=== PATIENT | female | born 1990 | race Caucasian/White ===

== ENCOUNTER → 2020-09-07 12:55 | Outpatient (CLI) | payer OTHER, SELFPAY | PROVIDERS: Referring Provider Physician Assistant; Visit Provider Physician Assistant | DX: A49.02 Methicillin resistant Staphylococcus aureus infection, unspecified site (principal); L40.0 Psoriasis vulgaris; Z79.899 Other long term (current) drug therapy | CPT/HCPCS: 87070; 87077; 87186; 87205 ==

== ENCOUNTER → 2022-02-04 | Outpatient (CLI) | payer BC, SELFPAY ==
[2022-02-06 20:09] LABS: QNTFERON TB Mitogen Value > 10.00 IU/mL (.); QNTFERON TB Nil Value 0.27 IU/mL (.); QNTFERON TB2+ Ag Value 0.13 IU/mL (.)
[2022-02-06 22:01] LABS: Hepatitis B Core Ab Total Negative (Negative); QNTIFERON TB Positive Criteria Negative (Negative)
== END | disposition home or self-care (01) ==
LOC: MTLAB 15:03
PROVIDERS: PCP Family Medicine; Referring Provider Physician Assistant Medical; Visit Provider Physician Assistant Medical
DX: L40.0 Psoriasis vulgaris (principal); Z79.899 Other long term (current) drug therapy
CPT/HCPCS: 36415; 86480; 86704

== ENCOUNTER → 2023-11-10 | Outpatient (CLI) | payer OTHER, SELFPAY ==
--- OUTSIDE RECORDS SUMMARY | 2023-11-10 18:44 | XMS RPT_ITS | CCD ---
Author Name Unknown Address [address] [facility] [place] [address] Organization [facility] Care Team Providers Care Periodicals Library Assistant Name Role Phone SONJA CRUZ Unavailable Unavailable SONJA CRUZ Unavailable Unavailable Roddy Cunningham Primary Care Provider Unavailabl e Roddy Cunningham Primary Care Provider [phone] Roddy Cunningham Primary Care Provider RODDY CUNNINGHAM Primary Care Unavailable GEMINI WILHELM Attending Unavailable GEMINI WILHELM Referring Unavailable RODDY CUNNINGHAM Primary Care Unavailable GEMINI WILHELM Attending Unavailable RODDY CUNNINGHAM Primary Care Unavailable GEMINI WILHELM Attending Unavailable RODDY CUNNINGHAM Primary Care Unavailable RODDY CUNNINGHAM Primary Care Unavailable MODESTA WALLS Attending Unavaila ble GEMINI WILHELM Attending Unavailable GEMINI WILHELM Referring Unavailable RODDY CUNNINGHAM Primary Care Unavailable Roddy Cunningham MD Primary Care Provider Roddy Cunningham MD Primary Care Provider [phone] Roddy Cunningham MD Primary Care Provider [phone] Roddy Cunningham MD Primary Care Provider RODDY CUNNINGHAM Attending Unavailable SELF, SELF Referring Unavailable RODDY CUNNINGHAM Primary Care Unavailable SELF, SELF Referring Unavailable RODDY CUNNINGHAM Primary Care Unavailable RODDY CUNNINGHAM Attending Unavailable RODDY CUNNINGHAM Primary Care Unavailable RODDY CUNNINGHAM Referring Unavailable RODDY CUNNINGHAM Attending Unavailable RODDY CUNNINGAHM Primary Care Unavailable SELF, SELF Referring Unavailable RODDY CUNNINGHAM Attending Unavailable Medications Current Medications Medication Drug Class(es) Dates Sig (Normalized) Sig (Original) acetaminophen 500 mg oral tablet (20 sources) Start: 08-08-2009 take 2 tablets by mouth every six hours as needed acetaminophen 500 MG tablet take 1,000 mg by mouth every 6 hours as needed.. 0 08/08/2009 Active Completed/Discontinued Medications Medication Drug Class(es) Dates Sig (Normalized) Sig (Original) cyclobenzaprine hydrochloride 10 mg oral tablet (20 sources) Muscle Relaxant Start: 05-30-2021 End: 07-17-2023 take 1 tablet by mouth twice daily Cyclobenzaprine 10 MG tablet Indications: Congenital scoliosis Take 1 tablet by mouth 2 times daily. 60 tablet 5 01/15/2023 07/17/2023 Discontinued Problems Active Problems Problem Classification Problem Date Documented Da te Episodic/Chronic Anxiety disorders (20 sources) Anxiety; Translations: [Mixed anxiety and depressive disorder] Onset: 10-18-2008 12-09-2016 Chronic Asthma (20 sources) Intrinsic asthma; Translations: [Unspecified asthma, uncomplicated] 12-09-2016 Chronic Cardiac dysrhythmias (1 source) Palpitations; Translations: [Palpitations] Episodic Diabetes mellitus without complication (5 sources) Impaired fasting glycaemia; Translations: [Impaired fasting glucose] Episodic Disorders of lipid metabolism (3 sources) Mixed hyperlipidemia; Translations: [Mixed hyperlipidemia] Chronic Epilepsy; convulsions (20 sources) Generalized convulsive epilepsy; 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] Onset: 01-26-2010 12-09-2016 Chronic Epilepsy; convulsions (3 sources) Seizure; Translations: [Unspecified convulsions] Episodic Esophageal disorders (20 sources) Gastro-esophageal reflux disease without esophagitis; Translations: [Gastroesophageal reflux disease] 12-09-2016 Chronic Fluid and electrolyte disorders (20 sources) Dehydration; Translations: [Dehydration] 12-09-2016 Episodic Heart valve disorders (20 sources) Pulmonic valve stenosis; Translations: [Pulmonary stenosis, non-rheumatic] Onset: 09-30-2016 01-05-2019 Chronic Inflammatory diseases of female pelvic organs (20 sources) Vaginitis; Translations: [Acute vaginitis] 12-09-2016 Episodic Joint disorders and dislocations; trauma-related (20 sources) Derangement of knee; Translations: [Unspecified internal derangement of unspecified knee] 12-09-2016 Chronic Miscellaneous mental health disorders (9 sources) Primary insomnia; Translations: [Primary insomnia] Chronic Mood disorders (20 sources) Depressive disorder; Translations: [Major depressive disorder, single episode, unspecified] 12-09-2016 Chronic Mycoses (20 sources) Candidiasis of mouth; Translations: [Candidiasis of vagina] 12-09-2016 Episodic Other congenital anomalies (20 sources) Congenital postural scoliosis; 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] Onset: 01-26-2010 12-09-2016 Chronic Other female genital disorders (16 sources) Dysfunctional uterine bleeding; Translations: [Dysfunctional uterine bleeding] 12-09-2016 Chronic Other female genital disorders (17 sources) Abnormal uterine bleeding; Translations: [Other specified abnormal uterine and vaginal bleeding] 12-09-2016 Chronic Other gastrointestinal disorders (20 sources) Dysphagia; Translations: [Dysphagia, unspecified] 12-09-2016 Episodic Other inflammatory condition of skin (20 sources) Psoriasis; Translations: [Psoriasis, unspecified] 12-09-2016 Chronic Other inflammatory condition of skin (20 sources) Arthropathic psoriasis, unspecified; Translations: [Psoriatic arthritis] 10-30-2018 Chronic Other nutritional; endocrine; and metabolic disorders (15 sources) Obesity, unspecified; Translations: [Obese class I] Onset: 05-20-2018 05-20-2018 Chronic Other nutritional; endocrine; and metabolic disorders (12 sources) Obese class I; Translations: [Obesity (BMI 30.0-34.9)] Onset: 05-20-2018 05-20-2018 Other skin disorders (20 sources) Acne; Translations: [Acne, unspecified] 12-09-2016 Episodic Other upper respiratory disease (20 sources) Allergic rhinitis; Translations: [Allergic rhinitis, unspecified] 12-09-2016 Chronic Pneumonia (except that caused by tuberculosis or sexually transmitted disease) (20 sources) Bronchopneumonia; Translations: [Bronchopneumonia, unspecified organism] 12-09-2016 Episodic Residual codes; unclassified (20 sources) Persistent insomnia; Translations: [Persistent insomnia] 12-09-2016 Chronic Residual codes; unclassified (8 sources) Persistent insomnia; Translations: [Insomnia, unspecified] 12-09-2016 Episodic Thyroid disorders (12 sources) Goiter; Translations: [Iodine-deficiency related diffuse (endemic) goiter] 12-09-2016 Chronic Past or Other Problems Problem Classification Problem Date Documented Da te Episodic/Chronic Genitourinary symptoms and ill-defined conditions (20 sources) Increased frequency of urination; Translations: [Frequency of micturition] Onset: 01-26-2010 12-09-2016 Episodic Mood disorders (6 sources) Mood disorders Onset: 01-05-2019 Resolved: 01-05-2019 01-05-2019 Other upper respiratory infections (20 sources) Acute maxillary sinusitis; Translations: [Acute maxillary sinusitis, unspecified] Onset: 08-08-2008 12-09-2016 Episodic Pulmonary heart disease (20 sources) Pulmonary artery aneurysm; 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] Onset: 09-30-2016 01-05-2019 Episodic Spondylosis; intervertebral disc disorders; other back problems (20 sources) Chronic low back pain; Translations: [Backache] Onset: 08-08-2009 12-09-2016 Episodic Syncope (20 sources) Syncope; Translations: [Syncope and collapse] Onset: 10-01-2016 01-05-2019 Episodic Thyroid disorders (15 sources) Disorder of thyroid gland; Translations: [Thyromegaly] 12-09-2016 Episodic Results Test Name Value Interpretation Reference Range Facil ity Vital Signs Date Time Vital Sign Value Performing Clinician Facility 07-17-2023 14:51-0400 Body mass index (BMI) [Ratio] 30.51 kg/m2 Roddy Cunningham MD Work Phone: [facility] 07-17-2023 14:51-0400 Body weight 63.96 kg Roddy Cunningham MD Work Phone: [facility] 07-17-2023 14:51-0400 Diastolic blood pressure 76 mm[Hg] Roddy Cunningham MD Work Phone: [facility] 07-17-2023 14:51-0400 Heart rate 106 /min Roddy Cunningham MD Work Phone: [facility] 07-17-2023 14:51-0400 SaO2% (BldA) [Mass fraction] 98 % Roddy Cunningham MD Work Phone: [facility] 07-17-2023 14:51-0400 Systolic blood pressure 122 mm[Hg] Roddy Cunningham MD Work Phone: [facility] 01-15-2023 13:11-0400 Body mass index (BMI) [Ratio] 30.73 kg/m2 Roddy Cunningham MD Work Phone: [facility] 01-15-2023 13:11-0400 Body weight 64.41 kg Roddy Cunningham MD Work Phone: [facility] 01-15-2023 13:11-0400 Diastolic blood pressure 74 mm[Hg] Roddy Cunningham MD Work Phone: [facility] 01-15-2023 13:11-0400 Heart rate 109 /min Roddy Cunningham MD Work Phone: [facility] 01-15-2023 13:11-0400 SaO2% (BldA) [Mass fraction] 96 % Roddy Cunningham MD Work Phone: [facility] 01-15-2023 13:11-0400 Systolic blood pressure 129 mm[Hg] Roddy Cunningham MD Work Phone: [facility] 05-29-2022 08:02-0400 Body height 144.8 cm Nora Midland DANCE PROFESSOR-CNC SERVICE ENGINEER [facility] Phone: [facility] 05-29-2022 08:02-0400 Body mass index (BMI) [Ratio] 30.9 kg/m2 Nora Armen DANCE PROFESSOR-CNC SERVICE ENGINEER [facility] 05-29-2022 08:02-0400 Body weight 64.77 kg Nora Midland DANCE PROFESSOR-CNC SERVICE ENGINEER Work Phone: [facility] 05-29-2022 08:02-0400 Diastolic blood pressure 74 mm[Hg] Nora Armen DANCE PROFESSOR-CNC SERVICE ENGINEER Work Phone: [facility] 05-29-2022 08:02-0400 Heart rate 105 /min Nora Armen DANCE PROFESSOR-CNC SERVICE ENGINEER Work Phone: [facility] 05-29-2022 08:02-0400 Respiratory rate 16 /min Nora Armen DANCE PROFESSOR-CNC SERVICE ENGINEER Work Phone: [facility] 05-29-2022 08:02-0400 SaO2% (BldA) [Mass fraction] 98 % Nora Ayers DANCE PROFESSOR-CNC SERVICE ENGINEER Work Phone: [facility] 05-29-2022 08:02-0400 Systolic blood pressure 118 mm[Hg] Nora Ayers DANCE PROFESSOR-CNC SERVICE ENGINEER Work Phone: [facility] 11-28-2021 13:05-0500 Body mass index (BMI) [Ratio] 29.99 kg/m2 Roddy Cunningham MD Work Phone: [facility] 11-28-2021 13:05-0500 Body weight 62.87 kg Roddy Cunningham MD Work Phone: [facility] 11-28-2021 13:05-0500 Diastolic blood pressure 28 mm[Hg] Roddy Cunningham MD Work Phone: [facility] 11-28-2021 13:05-0500 Heart rate 103 /min Roddy Cunningham MD Work Phone: [facility] 11-28-2021 13:05-0500 SaO2% (BldA) [Mass fraction] 99 % Roddy Cunningham MD Work Phone: [facility] 11-28-2021 13:05-0500 Systolic blood pressure 133 mm[Hg] Roddy Cunningham MD Work Phone: [facility] 08-07-2021 07:59-0500 Body height 144.8 cm Nora Ayers DANCE PROFESSOR-CNC SERVICE ENGINEER Work Phone: [facility] 08-07-2021 07:59-0500 Body mass index (BMI) [Ratio] 29.43 kg/m2 Nora Ayers DANCE PROFESSOR-CNC SERVICE ENGINEER Work Phone: [facility] 08-07-2021 07:59-0500 Body weight 61.69 kg Nora Ayers DANCE PROFESSOR-CNC SERVICE ENGINEER Work Phone: [facility] 08-07-2021 07:59-0500 Diastolic blood pressure 80 mm[Hg] Nora Ayers DANCE PROFESSOR-CNC SERVICE ENGINEER Work Phone: [employer] [facility] 08-07-2021 07:59-0500 Heart rate 102 /min Nora Ayers DANCE PROFESSOR-CNC SERVICE ENGINEER Work Phone: [facility] 08-07-2021 07:59-0500 SaO2% (BldA) [Mass fraction] 98 % Nora Ayers DANCE PROFESSOR-CNC SERVICE ENGINEER Work Phone: [facility] 08-07-2021 07:59-0500 Systolic blood pressure 128 mm[Hg] Nora Ayers DANCE PROFESSOR-CNC SERVICE ENGINEER Work Phone: [facility] 01-24-2021 10:43-0400 Body height 144.8 cm Nora Ayers DANCE PROFESSOR-CNC SERVICE ENGINEER Work Phone: [facility] 01-24-2021 10:43-0400 Body mass index (BMI) [Ratio] 29.86 kg/m2 Nora Ayers DANCE PROFESSOR-CNC SERVICE ENGINEER Work Phone: [facility] 01-24-2021 10:43-0400 Body weight 62.6 kg Nora Ayers DANCE PROFESSOR-CNC SERVICE ENGINEER Work Phone: [facility] 01-24-2021 10:43-0400 Diastolic blood pressure 60 mm[Hg] Nora Ayers DANCE PROFESSOR-CNC SERVICE ENGINEER Work Phone: [facility] 01-24-2021 10:43-0400 Heart rate 97 /min Nora Ayers DANCE PROFESSOR-CNC SERVICE ENGINEER Work Phone: [employer] [facility] 01-24-2021 10:43-0400 SaO2% (BldA) [Mass fraction] 99 % Nora Ayers DANCE PROFESSOR-CNC SERVICE ENGINEER Work Phone: [facility] 01-24-2021 10:43-0400 Systolic blood pressure 124 mm[Hg] Nora Ayers DANCE PROFESSOR-CNC SERVICE ENGINEER Work Phone: [facility] 11-28-2020 08:56-0500 BMI (Body Mass Index) 29.47 kg/m2 [facility] [employer] [facility] 11-28-2020 08:56-0500 Body weight 61.78 kg [facility] 11-28-2020 08:56-0500 BP Diastolic 84 mm[Hg] [facility] 11-28-2020 08:56-0500 BP Systolic 132 mm[Hg] [facility] 11-28-2020 08:56-0500 Pulse (Heart Rate) 78 /min [facility] 11-28-2020 08:56-0500 Respiratory Rate 16 /min [facility] 05-30-2020 14:44-0400 BMI (Body Mass Index) 30.04 kg/m2 [facility] [employer] [facility] 05-30-2020 14:44-0400 Body weight 62.96 kg [facility] 05-30-2020 14:44-0400 BP Diastolic 96 mm[Hg] [facility] 05-30-2020 14:44-0400 BP Systolic 141 mm[Hg] [facility] 05-30-2020 14:44-0400 Pulse (Heart Rate) 114 /min [facility] 05-30-2020 14:44-0400 Pulse Oximetry 98 % [facility] 05-30-2020 14:44-0400 Respiratory Rate 16 /min [facility] 05-15-2020 09:59-0400 BMI (Body Mass Index) 29.86 kg/m2 [facility] 05-15-2020 09:59-0400 Body weight 62.6 kg [facility] 05-15-2020 09:59-0400 BP Diastolic 78 mm[Hg] [facility] 05-15-2020 09:59-0400 BP Systolic 131 mm[Hg] [facility] 05-15-2020 09:59-0400 Height 144.8 cm [facility] 05-15-2020 09:59-0400 Pulse (Heart Rate) 121 /min [facility] 05-15-2020 09:59-0400 Pulse Oximetry 94 % [facility] 04-04-2020 12:59-0400 BMI (Body Mass Index) 29.65 kg/m2 [facility] 04-04-2020 12:59-0400 Body weight 62.14 kg [facility] 04-04-2020 12:59-0400 BP Diastolic 90 mm[Hg] [facility] 04-04-2020 12:59-0400 BP Systolic 140 mm[Hg] [facility] 04-04-2020 12:59-0400 Height 144.8 cm [facility] 04-04-2020 12:59-0400 Pulse (Heart Rate) 116 /min [facility] 04-04-2020 12:59-0400 Respiratory Rate 20 /min [facility] 11-26-2019 14:38-0500 BMI (Body Mass Index) 28.78 kg/m2 [facility] 11-26-2019 14:38-0500 Body weight 60.33 kg [facility] 11-26-2019 14:38-0500 BP Diastolic 95 mm[Hg] [facility] 11-26-2019 14:38-0500 BP Systolic 172 mm[Hg] [facility] 11-26-2019 14:38-0500 Height 144.8 cm [facility] 11-26-2019 14:38-0500 Pulse (Heart Rate) 104 /min [facility] 11-26-2019 14:38-0500 Respiratory Rate 18 /min [facility] 05-27-2019 08:57-0400 BMI (Body Mass Index) 29.65 kg/m2 [facility] 05-27-2019 08:57-0400 Body weight 62.14 kg [facility] 05-27-2019 08:57-0400 BP Diastolic 77 mm[Hg] [facility] 05-27-2019 08:57-0400 BP Systolic 123 mm[Hg] [facility] 05-27-2019 08:57-0400 Pulse (Heart Rate) 107 /min [facility] 03-30-2019 10:02-0400 BMI (Body Mass Index) 29.86 kg/m2 [facility] 03-30-2019 10:02-0400 Body weight 62.6 kg [facility] 03-30-2019 10:02-0400 BP Diastolic 78 mm[Hg] [facility] 03-30-2019 10:02-0400 BP Systolic 138 mm[Hg] [facility] 03-30-2019 10:02-0400 Height 144.8 cm [facility] 03-30-2019 10:02-0400 Pulse (Heart Rate) 108 /min [facility] 03-30-2019 10:02-0400 Respiratory Rate 16 /min [facility] 10-30-2018 10:06-0500 BMI (Body Mass Index) 31.25 kg/m2 [facility] Work Phone: 10-30-2018 10:06-0500 Body Temperature 98.1 [degF] [facility] Work Phone: 10-30-2018 10:06-0500 BP Diastolic 84 mm[Hg] [facility] Work Phone: 10-30-2018 10:06-0500 BP Systolic 126 mm[Hg] [facility] Work Phone: 10-30-2018 10:06-0500 Pulse (Heart Rate) 78 /min [facility] Work Phone: 10-30-2018 10:06-0500 Pulse Oximetry 98 % [facility] Work Phone: 10-30-2018 10:06-0500 Respiratory Rate 16 /min [facility] Work Phone: 10-30-2018 10:06-0500 Weight 65.5 kg [facility] Work Phone: Encounters Encounter Date Encounter Type Care Provider Facility Start: 01-16-2024 ambulatory RODDY CUNNINGHAM [facility] Start: 07-17-2023 ambulatory SELF SELF [facility] Start: 07-17-2023 End: 07-17-2023 Office outpatient visit 25 minutes Roddy Cunningham MD Work Phone: [facility] Procedures Date Procedure Procedure Detail Performing Clinician Start: 06-13-2020 Echocardiography [facility] Work Phone: Start: 05-15-2020 12 lead ECG [facility] Work Phone: Start: 02-05-2019 LABS (OUTSIDE) Roddy villanueva Work Phone: Start: 11-02-2014 Microscopic observat ion [Identifier] in Cervix by Cyto stain [facility] Plan of Treatment Date Care Activity Detail Author Start: 01-16-2024 End: 01-16-2024 Patient encounter procedure 01/16/2024 2:45 PM EDT Office Visit [facility] [address] [place] [phone] Roddy Cunningham MD [address] [place] [phone] [facility] Start: 07-17-2023 End: 07-17-2023 Patient encounter procedure 07/17/2023 Office Visit [facility] Roddy Cunningham MD [address] [place] [phone] [facility] Start: 07-17-2023 End: 01-16-2024 Basic metabolic 2000 panel - Serum or Plasma BASIC METABOLIC PANEL Lab Routine Impaired fasting glucose Expected: 07/17/2023 (Approximate), Expires: 01/16/2024 [facility] Payers Date Payer Category Payer Private Health Insurance [employer] Tony AILEEN [id number] 2023-Present [address] [place] [id number] 2023 Private Health Insurance [id number] 2023 Private Health Insurance [id number] 2021 Unknown [employer] [id number] 2021-Present [address] [place] [address] [id number] 2021 Unknown [id number] 2021 Unknown [id number] 2019 Unknown [id number] 2016 Private Health Insurance [facility] xxxxxxxxx 2016-Present xxxxxxxxx [id number] 2016 Private Health Insurance [id number] 1988 Unknown [id number] [id number] 1988 Unknown [id number] [id number] 1988 Unknown [id number] 2.90 1988 Unknown [id number] [id number] 1988 Unknown [id number] [id number] 1988 Unknown [id number] [id number] 1988 Unknown [id number] 2.983 1988 Unknown [id number] 2.983 1988 Unknown [id number] 2.983 1988 Unknown [id number] [id number] Social History Date Type Detail Facility Start: 10-30-2018 End: 01-15-2023 Tobacco smoking status NHIS Never smoker [facility] Work Phone: Start: 1990 Sex Assigned At Not on file [facility] Work Phone: Start: 03-30-2019 End: 07-17-2023 Alcohol intake No [facility] Start: 11-29-2019 End: 07-18-2023 Alcohol intake Current non-drinker of alcohol (finding) [facility] Start: 04-04-2020 End: 01-15-2023 Tobacco use and exposure Never used [facility] Exposure to SARS-CoV -2 (event) Not sure [facility] Start: 07-17-2023 History of Social function [facility] Gender identity Identifies as fe male gender (finding) [facility] Start: 05-14-2021 Sexual orientation Heterosexual (finding) [facility] Clinical Notes 01-24-2021 to 07-17-2023 Leilani Mera - 07/17/2023 2:50 PM Senia Cunningham MD - 07/17/2023 2:50 PM Keagan Mera - 01/15/2023 1:20 PM Senia Cunningham MD - 01/15/2023 1:20 PM Kathe To - 06/26/2022 8:40 AM EDT Note Date & Type Note Facility 07-17-2023 History of Presen t illness Narrative INSOMNIA- (trouble sleeping) Onset- chronic Frequency- nightly Describe sleep problem (trouble falling asleep, early awakening, etc) - all Treatment tried and response - amitriptyline and tizanidine ANXIETY/DEPRESSION- Patient her for anxiety/depression. Pt is currently being treated with lexapro. Good control with medication .Substance abuse - NONE. GERD- Mayuri presents to the office today for follow-up of GERD. Pt denies dysphagia. Pt has tried nexium with good effectiveness. Control - Other comments- Denies increase pain or cramping, long periods. ALLERGY- Mayuri Smith presents for evaluation/follow up for allergies. Eyes red/itchy/tearing: yes Nasal congestion: yes Runny nose: yes Ear pain: no Sinus pain: no she denies fever, chills, sore throat, cough, sputum, SOB, pleuritic pain, nausea, vomiting, rash. Previous treatment tried: listed meds ASTHMA- Mayuri Smith is a 33 y.o. female who comes in for a/an f/u asthma eval Associated sx include Nasal Congestion: no Fever: no Cough: no Wheezing: no Shortness of breath: no Other: no Also Sz d/o. No breakthrough. Also IFG. Watching diet. INSOMNIA- (trouble sleeping) Onset- chronic Frequency- nightly Describe sleep problem (trouble falling asleep, early awakening, etc) - all Treatment tried and response - amitriptyline and tizanidine ANXIETY/DEPRESSION- Patient her for anxiety/depression. Pt is currently being treated with lexapro. Good control with medication .Substance abuse - NONE. GERD- Mayuri presents to the office today for follow-up of GERD. Pt denies dysphagia. Pt has tried nexium with good effectiveness. Control - Other comments- Denies increase pain or cramping, long periods. ALLERGY- Mayuri Smith presents for evaluation/follow up for allergies. Eyes red/itchy/tearing: yes Nasal congestion: yes Runny nose: yes Ear pain: no Sinus pain: no she denies fever, chills, sore throat, cough, sputum, SOB, pleuritic pain, nausea, vomiting, rash. Previous treatment tried: listed meds ASTHMA- Mayuri Smith is a 33 y.o. female who comes in for a/an f/u asthma eval Associated sx include Nasal Congestion: no Fever: no Cough: no Wheezing: no Shortness of breath: no Other: no Also Sz d/o. No breakthrough. Also IFG. Watching diet. Does not need control. Trying to get . Subjective: Mayuri Smith is a 33 y.o. female who presents in follow up for hyperlipidemia. she is feeling well. There are no complaints relative to her lipids. she denies chest pain, SOB, SHELBY, palpitations, orthopnea, PND, edema, headache, focal neurologic complaints, claudication. General: No fever, chills, weight loss. HEENT: No sinus pain, ear pain, sore throat. Neck: No LAD. Lungs: No cough, sputum, pleuritic pain, hemoptysis, SOB. CV: No chest pain, palpitation, orthopnea, PND, edema. GI: No abd pain, nausea, vomiting, diarrhea, constipation, melena, hematochezia. : No dysuria, frequency, hematuria. Skin: No rash or lesion. Neuro: No mental status changes, headache, focal neurologic complaints. Objective: Blood pressure 122/76, pulse 106, weight 64 kg (141 lb), SpO2 98 %, not currently . Results for orders placed or performed in visit on 01/14/23 LAMOTRIGINE LEVEL Result Value Ref Range LAMOTRIGINE LEVEL 3.7 LIPID PANEL W CALCULATED LDL Result Value Ref Range CHOLESTEROL 240 (H) 100 - 199 MG/DL TRIGLYCERIDE 132 <150 MG/DL HDL CHOLESTEROL 66 (H) 40 - 60 MG/DL LDL CHOLESTEROL, CALCULATED 148 (H) 0 - 100 MG/DL VLDL Cholesterol, Calculated 26 (H) 5.0 - 25.0 MG/DL TCHOL/HDL RATIO, MANUAL ENTER 3.64 RATIO HEPATIC FUNCTION PANEL Result Value Ref Range Albumin 4.0 3.5 - 5.0 G/DL BILIRUBIN, TOTAL 0.2 0.2 - 1.2 MG/DL ALKALINE PHOSPHATASE 66 38 - 126 IU/L AST 17 15 - 41 IU/L BILIRUBIN, DIRECT 0.1 0.0 - 0.2 MG/DL PROTEIN, TOTAL 8.1 6.3 - 8.2 GM/DL ALT 16 14 - 54 IU/L BASIC METABOLIC PANEL Result Value Ref Range Glucose 109 (H) 70 - 100 MG/DL BUN 12 7 - 20 MG/DL CREATININE SERUM 0.89 0.52 - 1.04 MG/DL SODIUM 135 (L) 136 - 145 MMOL/L POTASSIUM 3.4 (L) 3.5 - 5.1 MMOL/L CHLORIDE 98 98 - 107 MMOL/L CARBON DIOXIDE (CO2) 25 22 - 30 MMOL/L ANION GAP 12 8 - 16 MMOL/L CALCIUM 9.0 8.4 - 10.2 MG/DL ESTIMATED GFR, NON AMER 77 ml/min/1.73sq.m ESTIMATED GFR, 93 ml/min/1.73sq.m GFR COMMENT Average GFR for 30-39 years old = 107. HEENT: NC/AT, PERRLA, EOMI, fundi benign, external ears normal, OP normal. Neck: No LAD/thyromegaly. No JVD/bruit. Lungs: Clear to auscultation bilaterally. No wheezes, rales, ronchi. Heart: RRR. No S3/S4. Abdomen: Soft, NT/ND, normal bowel sounds, no HSM, no bruits. Extremities: No clubbing, cyanosis, edema. Normal pulses. Neurologic: CN II-XII intact. Strength/DTR's/sensation symmetric. Cerebellar function normal. Skin: No rash or suspicious lesions. Musculoskeletal: No edema, redness, warmth, deformities. Psychiatric: Alert and oriented. Affect and mood normal. Assessment and Plan: 1. Intrinsic asthma - Montelukast 10 MG tablet; Take 1 tablet by mouth daily. Dispense: 90 tablet; Refill: 1 2. Allergic rhinitis, unspecified seasonality, unspecified trigger - Montelukast 10 MG tablet; Take 1 tablet by mouth daily. Dispense: 90 tablet; Refill: 1 3. Anxious depression - venlafaxine 150 MG Cap SR 24HR capsule XR; Take 1 capsule by mouth daily. Dispense: 90 capsule; Refill: 1 4. Congenital scoliosis 5. Dysfunctional uterine bleeding 6. Gastroesophageal reflux disease without esophagitis - omeprazole [address] capsule; Take 1 capsule by mouth daily. Dispense: 90 capsule; Refill: 1 7. Primary insomnia - Amitriptyline 150 MG tablet; Take 1 tablet by mouth at bedtime. Dispense: 90 tablet; Refill: 1 - Tizanidine 4 MG tablet; Take 1 tablet by mouth 2 times daily. Dispense: 180 tablet; Refill: 1 8. Impaired fasting glucose Discussed lowering carbohydrate intake, mixing glycemic indices, and increasing activity. 9. Mixed hyperlipidemia Diet: - Decrease saturated fats (red meat and solid shortening) - Increase unsaturated fat (olive/canola oil, fish, nuts) - Decreased starch and sugar - Increase fiber - Increase garlic - Can take additional Niacin (500-1000 mg, cautioned about flushing) Has a lab order in the system. Roddy Cunningham MD 07/18/2023 documented in this encounter [facility] 01-15-2023 History of Presen t illness Narrative INSOMNIA- (trouble sleeping) Onset- chronic Frequency- nightly Describe sleep problem (trouble falling asleep, early awakening, etc) - all Treatment tried and response - amitriptyline and tizanidine ANXIETY/DEPRESSION- Patient her for anxiety/depression. Pt is currently being treated with lexapro. Good control with medication .Substance abuse - NONE. GERD- Mayuri presents to the office today for follow-up of GERD. Pt denies dysphagia. Pt has tried nexium with good effectiveness. Control - Other comments- Denies increase pain or cramping, long periods. ALLERGY- Mayuri Smith presents for evaluation/follow up for allergies. Eyes red/itchy/tearing: yes Nasal congestion: yes Runny nose: yes Ear pain: no Sinus pain: no she denies fever, chills, sore throat, cough, sputum, SOB, pleuritic pain, nausea, vomiting, rash. Previous treatment tried: listed meds ASTHMA- Mayuri Smith is a 32 y.o. female who comes in for a/an f/u asthma eval Associated sx include Nasal Congestion: no Fever: no Cough: no Wheezing: no Shortness of breath: no Other: no Also Sz d/o. No breakthrough. Also IFG. Watching diet. INSOMNIA- (trouble sleeping) Onset- chronic Frequency- nightly Describe sleep problem (trouble falling asleep, early awakening, etc) - all Treatment tried and response - amitriptyline and tizanidine ANXIETY/DEPRESSION- Patient her for anxiety/depression. Pt is currently being treated with lexapro. Good control with medication .Substance abuse - NONE. GERD- Mayuri presents to the office today for follow-up of GERD. Pt denies dysphagia. Pt has tried nexium with good effectiveness. Control - Other comments- Denies increase pain or cramping, long periods. Periods controlled. ALLERGY- Mayuri Smith presents for evaluation/follow up for allergies. Eyes red/itchy/tearing: yes Nasal congestion: yes Runny nose: yes Ear pain: no Sinus pain: no she denies fever, chills, sore throat, cough, sputum, SOB, pleuritic pain, nausea, vomiting, rash. Previous treatment tried: listed meds ASTHMA- Myauri Smith is a 32 y.o. female who comes in for a/an f/u asthma eval Associated sx include Nasal Congestion: no Fever: no Cough: no Wheezing: no Shortness of breath: no Other: no Subjective: Mayuri Smith is a 32 y.o. female who presents in follow up for hyperlipidemia. she is feeling well. There are no complaints relative to her lipids. Patient is compliant with medications. she denies any side effects from medications. she denies chest pain, SOB, SHELBY, palpitations, orthopnea, PND, edema, headache, focal neurologic complaints, claudication. Also Sz d/o. No breakthrough. Also IFG. Watching diet. General: No fever, chills, weight loss. HEENT: No sinus pain, ear pain, sore throat. Neck: No LAD. Lungs: No cough, sputum, pleuritic pain, hemoptysis, SOB. CV: No chest pain, palpitation, orthopnea, PND, edema. GI: No abd pain, nausea, vomiting, diarrhea, constipation, melena, hematochezia. : No dysuria, frequency, hematuria. Skin: No rash or lesion. Neuro: No mental status changes, headache, focal neurologic complaints. Objective: Blood pressure 129/74, pulse 109, weight 64.4 kg (142 lb), SpO2 96 %, not currently . Results for orders placed or performed in visit on 01/14/23 LIPID PANEL W CALCULATED LDL Result Value Ref Range CHOLESTEROL 240 (H) 100 - 199 MG/DL TRIGLYCERIDE 132 <150 MG/DL HDL CHOLESTEROL 66 (H) 40 - 60 MG/DL LDL CHOLESTEROL, CALCULATED 148 (H) 0 - 100 MG/DL VLDL Cholesterol, Calculated 26 (H) 5.0 - 25.0 MG/DL TCHOL/HDL RATIO, MANUAL ENTER 3.64 RATIO HEPATIC FUNCTION PANEL Result Value Ref Range Albumin 4.0 3.5 - 5.0 G/DL BILIRUBIN, TOTAL 0.2 0.2 - 1.2 MG/DL ALKALINE PHOSPHATASE 66 38 - 126 IU/L AST 17 15 - 41 IU/L BILIRUBIN, DIRECT 0.1 0.0 - 0.2 MG/DL PROTEIN, TOTAL 8.1 6.3 - 8.2 GM/DL ALT 16 14 - 54 IU/L BASIC METABOLIC PANEL Result Value Ref Range Glucose 109 (H) 70 - 100 MG/DL BUN 12 7 - 20 MG/DL CREATININE SERUM 0.89 0.52 - 1.04 MG/DL SODIUM 135 (L) 136 - 145 MMOL/L POTASSIUM 3.4 (L) 3.5 - 5.1 MMOL/L CHLORIDE 98 98 - 107 MMOL/L CARBON DIOXIDE (CO2) 25 22 - 30 MMOL/L ANION GAP 12 8 - 16 MMOL/L CALCIUM 9.0 8.4 - 10.2 MG/DL ESTIMATED GFR, NON AMER 77 ml/min/1.73sq.m ESTIMATED GFR, 93 ml/min/1.73sq.m GFR COMMENT Average GFR for 30-39 years old = 107. HEENT: NC/AT, PERRLA, EOMI, fundi benign, external ears normal, OP normal. Neck: No LAD/thyromegaly. No JVD/bruit. Lungs: Clear to auscultation bilaterally. No wheezes, rales, ronchi. Heart: RRR. No S3/S4. Abdomen: Soft, NT/ND, normal bowel sounds, no HSM, no bruits. Extremities: No clubbing, cyanosis, edema. Normal pulses. Neurologic: CN II-XII intact. Strength/DTR's/sensation symmetric. Cerebellar function normal. Skin: No rash or suspicious lesions. Musculoskeletal: No edema, redness, warmth, deformities. Psychiatric: Alert and oriented. Affect and mood normal. Assessment and Plan: 1. Intrinsic asthma - Montelukast 10 MG tablet; Take 1 tablet by mouth daily. Dispense: 30 tablet; Refill: 5 - budesonide-formoterol (Symbicort) 160-4.5 mcg/puff Aerosol inhaler; Inhale 2 puffs 2 times daily. Dispense: 10.2 g; Refill: 5 2. Allergic rhinitis, unspecified seasonality, unspecified trigger - Montelukast 10 MG tablet; Take 1 tablet by mouth daily. Dispense: 30 tablet; Refill: 5 3. Anxious depression - venlafaxine 150 MG Cap SR 24HR capsule XR; Take 1 capsule by mouth daily. Dispense: 30 capsule; Refill: 5 4. Congenital scoliosis - Cyclobenzaprine 10 MG tablet; Take 1 tablet by mouth 2 times daily. Dispense: 60 tablet; Refill: 5 5. Dysfunctional uterine bleeding - norgestimate-ethinyl estradiol 0.25-35 MG-MCG tablet; Take 1 tablet by mouth daily. Dispense: 28 tablet; Refill: 6 6. Gastroesophageal reflux disease without esophagitis - omeprazole [address] capsule; Take 1 capsule by mouth daily. Dispense: 30 capsule; Refill: 5 7. Primary insomnia - Amitriptyline 150 MG tablet; Take 1 tablet by mouth at bedtime. Dispense: 30 tablet; Refill: 5 - Tizanidine 2 MG tablet; Take 2 tablets by mouth 2 times daily. Dispense: 120 tablet; Refill: 5 8. Impaired fasting glucose Discussed lowering carbohydrate intake, mixing glycemic indices, and increasing activity. - BASIC METABOLIC PANEL; Future - HEMOGLOBIN A1C; Future 9. Mixed hyperlipidemia Diet: - Decrease saturated fats (red meat and solid shortening) - Increase unsaturated fat (olive/canola oil, fish, nuts) - Decreased starch and sugar - Increase fiber - Increase garlic - Can take additional Niacin (500-1000 mg, cautioned about flushing) - HEPATIC FUNCTION PANEL; Future - LIPID PANEL W CALCULATED LDL; Future 10. Intractable epilepsy without status epilepticus, unspecified epilepsy type - LAMOTRIGINE LEVEL; Future 11. Seizure Roddy Cunningham MD 01/15/2023 documented in this encounter [facility] 06-26-2022 History of Presen t illness Narrative INSOMNIA- (trouble sleeping) Onset- chronic Frequency- nightly Describe sleep problem (trouble falling asleep, early awakening, etc) - all Treatment tried and response - amitriptyline and tizanidine Additional Comments- Pt needs refills on meds. ANXIETY/DEPRESSION- Patient her for anxiety/depression. Pt is currently being treated with lexapro. Good control with medication .Substance abuse - NONE. GERDRobert Messina presents to the office today for follow-up of GERD. Pt denies dysphagia. Pt has tried nexium with good effectiveness. Control - Other comments- Denies increase pain or cramping, long periods. ALLERGY- Mayuri Smith presents for evaluation/follow up for allergies. Eyes red/itchy/tearing: yes Nasal congestion: yes Runny nose: yes Ear pain: no Sinus pain: no she denies fever, chills, sore throat, cough, sputum, SOB, pleuritic pain, nausea, vomiting, rash. Previous treatment tried: listed meds ASTHMA- Mayuri Smith is a 32 y.o. female who comes in for a/an f/u asthma eval Associated sx include Nasal Congestion: no Fever: no Cough: no Wheezing: no Shortness of breath: no Other: no Current medications effectiveness- rx meds Also Sz d/o. No breakthrough. Also IFG. Watching diet. INSOMNIA- (trouble sleeping) Onset- chronic Frequency- nightly Describe sleep problem (trouble falling asleep, early awakening, etc) - all Treatment tried and response - amitriptyline and tizanidine Additional Comments- Pt needs refills on meds. ANXIETY/DEPRESSION- Patient her for anxiety/depression. Pt is currently being treated with lexapro. Good control with medication .Substance abuse - NONE. GERDRobert Messina presents to the office today for follow-up of GERD. Pt denies dysphagia. Pt has tried nexium with good effectiveness. Control - Other comments- Denies increase pain or cramping, long periods. ALLERGY- Mayuri Smith presents for evaluation/follow up for allergies. Eyes red/itchy/tearing: yes Nasal congestion: yes Runny nose: yes Ear pain: no Sinus pain: no she denies fever, chills, sore throat, cough, sputum, SOB, pleuritic pain, nausea, vomiting, rash. Previous treatment tried: listed meds ASTHMA- Mayuri Smith is a 32 y.o. female who comes in for a/an f/u asthma eval Associated sx include Nasal Congestion: no Fever: no Cough: no Wheezing: no Shortness of breath: no Other: no Current medications effectiveness- rx meds Also Sz d/o. No breakthrough. Also IFG. Watching diet. Subjective: Mayuri Smith is a 32 y.o. female who presents in follow up for hyperlipidemia. she is feeling well. There are no complaints relative to her lipids. she denies chest pain, SOB, SHELBY, palpitations, orthopnea, PND, edema, headache, focal neurologic complaints, claudication. General: No fever, chills, weight loss. HEENT: No sinus pain, ear pain, sore throat. Neck: No LAD. Lungs: No cough, sputum, pleuritic pain, hemoptysis, SOB. CV: No chest pain, palpitation, orthopnea, PND, edema. GI: No abd pain, nausea, vomiting, diarrhea, constipation, melena, hematochezia. : No dysuria, frequency, hematuria. Skin: No rash or lesion. Neuro: No mental status changes, headache, focal neurologic complaints. Objective: not currently . Results for orders placed or performed in visit on 11/27/21 LAMOTRIGINE LEVEL Result Value Ref Range LAMOTRIGINE LEVEL 6.8 LIPID PANEL W CALCULATED LDL Result Value Ref Range CHOLESTEROL 282 (H) 100 - 199 MG/DL TRIGLYCERIDE 114 <150 MG/DL HDL CHOLESTEROL 74 (H) 40 - 60 MG/DL LDL CHOLESTEROL, CALCULATED 185 (H) 0 - 100 MG/DL VLDL Cholesterol, Calculated 23 5.0 - 25.0 MG/DL TCHOL/HDL RATIO, MANUAL ENTER 3.81 RATIO HEPATIC FUNCTION PANEL Result Value Ref Range Albumin 4.2 3.5 - 5.0 G/DL BILIRUBIN, TOTAL 0.5 0.2 - 1.2 MG/DL ALKALINE PHOSPHATASE 90 38 - 126 IU/L AST 18 15 - 41 IU/L BILIRUBIN, DIRECT 0.0 0.0 - 0.2 MG/DL PROTEIN, TOTAL 8.5 (H) 6.3 - 8.2 GM/DL ALT 15 14 - 54 IU/L BASIC METABOLIC PANEL Result Value Ref Range GLUCOSE 75 70 - 100 MG/DL BUN 11 7 - 20 MG/DL CREATININE SERUM 0.75 0.52 - 1.04 MG/DL SODIUM 138 136 - 145 MMOL/L POTASSIUM 3.5 3.5 - 5.1 MMOL/L CHLORIDE 100 98 - 107 MMOL/L CARBON DIOXIDE (CO2) 23 22 - 30 MMOL/L ANION GAP 15 8 - 16 MMOL/L CALCIUM 9.6 8.4 - 10.2 MG/DL ESTIMATED GFR, NON AMER 95 ml/min/1.73sq.m ESTIMATED GFR, 114 ml/min/1.73sq.m GFR COMMENT Average GFR for 30-39 years old = 107. HEENT: NC/AT, PERRLA, EOMI, fundi benign, external ears normal, OP normal. Neck: No LAD/thyromegaly. No JVD/bruit. Lungs: Clear to auscultation bilaterally. No wheezes, rales, ronchi. Heart: RRR. No S3/S4. Abdomen: Soft, NT/ND, normal bowel sounds, no HSM, no bruits. Extremities: No clubbing, cyanosis, edema. Normal pulses. Neurologic: CN II-XII intact. Strength/DTR's/sensation symmetric. Cerebellar function normal. Skin: No rash or suspicious lesions. Musculoskeletal: No edema, redness, warmth, deformities. Psychiatric: Alert and oriented. Affect and mood normal. Assessment and Plan: 1. Intrinsic asthma - montelukast 10 MG tablet; Take 1 tablet by mouth daily. Dispense: 30 tablet; Refill: 5 - budesonide-formoterol (Symbicort) 160-4.5 mcg/puff Aerosol inhaler; Inhale 2 puffs 2 times daily. Dispense: 10.2 g; Refill: 5 2. Allergic rhinitis, unspecified seasonality, unspecified trigger - montelukast 10 MG tablet; Take 1 tablet by mouth daily. Dispense: 30 tablet; Refill: 5 3. Anxious depression - venlafaxine 150 MG Cap SR 24HR capsule XR; Take 1 capsule by mouth daily. Dispense: 30 capsule; Refill: 5 4. Congenital scoliosis - cyclobenzaprine 10 MG tablet; Take 1 tablet by mouth 2 times daily. Dispense: 60 tablet; Refill: 5 5. Gastroesophageal reflux disease without esophagitis - omeprazole [address] capsule; Take 1 capsule by mouth daily. Dispense: 30 capsule; Refill: 5 6. Primary insomnia - amitriptyline 150 MG tablet; Take 1 tablet by mouth at bedtime. Dispense: 30 tablet; Refill: 5 - tizanidine 2 MG tablet; Take 2 tablets by mouth 2 times daily. Dispense: 120 tablet; Refill: 5 7. Dysfunctional uterine bleeding - norgestimate-ethinyl estradiol 0.25-35 MG-MCG tablet; Take 1 tablet by mouth daily. Dispense: 28 tablet; Refill: 6 8. Seizure - LAMOTRIGINE LEVEL; Future 9. Mixed hyperlipidemia Diet: - Decrease saturated fats (red meat and solid shortening) - Increase unsaturated fat (olive/canola oil, fish, nuts) - Decreased starch and sugar - Increase fiber - Increase garlic - Can take additional Niacin (500-1000 mg, cautioned about flushing) - BASIC METABOLIC PANEL; Future - HEPATIC FUNCTION PANEL; Future - LIPID PANEL W CALCULATED LDL; Future Roddy Cunningham MD 06/26/2022 documented in this encounter [facility] 05-29-2022 History of Presen t illness Narrative NEUROLOGY OUTPATIENT FOLLOW-UP 05/29/2022 Patient: Mayuri Smith Date of : 1990 Primary Care Provider: Roddy Cunningham Neurology Provider for this visit: Nora Ayers APRN-CNC SERVICE ENGINEER - - - - - - - - - - - - - - - - - - - - - - - - - - - - - - - - - - - - - - ASSESSMENT & PLAN for this 32 y.o. female: Epilepsy NOS- Lamictal 100mg in am and 200mg in evening Continue with folic acid supplementation Seizure precautions- education placed in AVS Patient to follow up in 1 year. Educated to contact the office with questions, concerns, or worsening symptoms. This provider spent ample amount of time reviewing patient's chart. This includes: provider notes, therapy, labs, imaging, procedures, medications, etc.. 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 Follow-up: Return in about 1 year (around 05/29/2023), or if symptoms worsen or fail to improve. - - - - - - - - - - - - - - - - - - - - - - - - - - - - - - - - - - - - - - DATA/Testing: (MRI/CT/XR, EEG, EMG, CSF, Cardiac, Abnl Labs, Nl labs) No neuroimaging to review at this time SUBJECTIVE: Chief Complaint: Follow-up for seizures Interval History: Informant(s): .the patient Patient presents in follow up for epilepsy. She states that she has been doing well since her last appointment. She denies any seizure-like activity. She is tolerating the medication well and denies any side effects. Patient also continues to take her folic acid supplements daily. Patient is independent in all activities. She manages her own medications and finances. Patient is sleeping through the night and feels rested upon waking. Patient consumes 2-3 meals a day. Her mood is stable. 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 Patient is unsure of what occurs during seizures. She states that she loses consciousness and is amnestic afterwards. Will be back to baseline within hours of episode. Patent is independent in all adl's. Denies any recent lapses in time, uncontrolled movements, incontinence. Denies any unxeplained injuries. Denies headache, diplopia, blurred vision, dysarthria, dysphagia, focal weakness, sensory changes. Review of Illness: 04/04/20-Mrs. Smith returns to the office for an annual follow-up for epilepsy. She was last seen in March 2019. The patient's last known seizure was in August 2016. Patient remains on Folic Acid and Lamictal. The patient denies any problems, concerns, and denies any seizures. She reports being faithful with her medications. She has [employer] paperwork today. AED History Lamictal OARRS--Flexeril Review Of Systems Currently Denies: Gen: fevers, chills, appetite or weight changes ENT: dry mouth, ringing in the ears CV: chest pain, palpitations Resp: cough, shortness of breath GI: abdominal pain, nausea : urinary incontinence, dysuria MSK: muscle cramps, Skin: rashes Hematologic: bruises Tobacco use: reports that she has never smoked. She has never used smokeless tobacco. Medications: Current Outpatient Medications Medication Instructions acetaminophen (TYLENOL) 1,000 mg, Oral, EVERY 6 HOURS NEEDED Albuterol Sulfate (PROAIR HFA IN) 2 puffs, Inhalation, NEEDED amitriptyline (ELAVIL) 150 mg, Oral, DAILY AT BEDTIME Anthralin 1 % Shampoo TWICE WEEKLY budesonide-formoterol (Symbicort) 160-4.5 mcg/puff Aerosol inhaler 2 puffs, Inhalation, 2 TIMES DAILY Calcium Carbonate (CALCIUM 600 PO) 600 mg, Oral, DAILY clobetasol 0.05 % Solution Topical, 2 TIMES DAILY, To the affected scalp area in the morning and the evening cyclobenzaprine (FLEXERIL) 10 mg, Oral, 2 TIMES DAILY fluticasone 50 MCG/ACT Suspension 1 spray, Nasal, EVERY 2 DAYS, In each nostril folic acid (FOLVITE) 2 mg, Oral, DAILY ketoconazole 2 % Shampoo shampoo WASH THE SCALP THREE TIMES A WEEK. LET SIT FOR 3-5 MINUTES BEFORE RINSING lamoTRIgine (LaMICtal) 100 MG tablet Take 1 tab PO each morning and 2 tabs PO QHS Melatonin 300 MCG Tab DAILY AT BEDTIME montelukast (SINGULAIR) 10 mg, Oral, DAILY Multiple Vitamin (MULTIVITAMIN PO) No dose, route, or frequency recorded. norgestimate-ethinyl estradiol 0.25-35 MG-MCG tablet take 1 tablet by mouth once daily omeprazole (PRILOSEC) 40 mg, Oral, DAILY tizanidine (ZANAFLEX) 4 mg, Oral, 2 TIMES DAILY venlafaxine (EFFEXOR-XR) 150 mg, Oral, DAILY OBJECTIVE: DNFC = Does NOT follow commands TONEY = Unable to assess BP 118/74 (BP Location: Left arm, BP Position: Sitting) Pulse 105 Resp 16 Ht 1.448 m (4' 9 ) Wt 64.8 kg (142 lb 12.8 oz) SpO2 98% BMI 30.90 kg/m Smoking Status Never Smoker Physical Exam GENERAL: General Appearance: In NAD Neck: Supple Respiratory Effort: Normal Extremities: No edema Skin: No rashes visualized MENTAL STATUS: Alertness, Attention Span & Concentration: Normal Language: Normal Speech: Normal Orientation: Normal Memory, Recent & Remote: Normal Fund of Knowledge: Normal CRANIAL NERVES: II - Visual Julian: Normal II, III: Pupils: PERRL III, IV, : Eye Movements: Normal (EOMI, No ptosis, No nystagmus) V - Facial Sensation: right flattened nasolabial fold- chronic VII: Face Symmetry & Strength: Normal VIII - Hearing: Normal IX, X - Palate:: Normal XI - Shoulder Shrug: Normal XII - Tongue Protrusion: Normal COORDINATION & GROSS MOTOR: Abnormal Movements: None Coordination [id number]: Normal Coordination Idem-Luge-Pciw: Normal Drift: None Tone: Normal Bulk: Normal MUSCLE STRENGTH: Right Muscle Strength Left 5 Shoulder Abduction (Deltoid) 5 5 Elbow Flexion (Biceps) 5 5 Elbow Extension (Triceps) 5 5 Finger Abduction (Interossei) 5 5 Hip Flexion (Iliopsoas) 5 5 Knee Extension (Quads) 5 5 Knee Flexion (Hamstrings) 5 5 Dorsiflexion (Anterior Tibialis) 5 MOTOR KOHLI: 5 Normal (Normal Power) 4 Mild Weakness (Movement against moderate resistance over a full range of motion) 3 Moderate Weakness (Movement against gravity over almost full range of motion) 2 Severe Weakness (Movement with gravity eliminated over almost full range of motion) 1 Trace Movement (flicker of contraction visible or palpable) 0 No Movement (No contraction visible or palpable) TONEY Unable to Assess SENSATION: Fine Touch: Normal documented in this encounter [facility] 05-29-2022 Instructions STELLA Gross - 05/29/2022 8:00 AM EDT Seizure Activity Restrictions Activity restrictions include: No driving vehicles of any sort (car/ truck/ motorcycle, bicycle, etc.) No operation of heavy or mechanized equipment. No working at heights No bathing/ swimming alone No contact sports No work with hazardous materials or tools No babysitting No participation in any activity that could foreseeable end up in injury for you or others if you lost consciousness during the midst of the activity. Use your common sense. No return to the above activities until cleared by a physician to do so. Activity restrictions last for at least 3-6 months from your most recent or any future seizure or spell of confusion, decreased awareness, or inability to interact with the environment. The activity restrictions clock will reset to an additional 3-6 months with any additional seizure or spell. If these are on-the-job activities, then activity restrictions last for at least 6 months. Do NOT return to these activites until released by another qualified license personel Call 911 if patient has seizure or spell lasting longer than 5 minutes or has 2 seizures/ spells in a row without return to baseline in between the seizures/spells. Seizure First Aid First Aid for Seizures 1. Stay calm and be reassuring 2. Try to keep the person from falling on hard or sharp objects 3. If possible lay the person down and roll them onto their side 4. Try to put something soft under the person's head 5. Use a watch to time the seizure as soon as you see one begin 6. Do NOT put anything in the person's mouth!!! 7. Try to save the person from injury, but do NOT hold the person down or keep them from moving - holding someone down could hurt them MORE!!! 8. Stay with the person until the seizure stops 9. If they are very upset or violent stay back 10. Do not try to give the person water or anything else by mouth during a seizure, wait until they are alert again and can swallow without choking 11. If needed, the person should be allowed to rest while someone can watch them and can watch for more seizures - someone should stay nearby until they are alert again When Should I Call 911 or go to the ER*? 1. If a seizure lasts more than 5 minutes 2. If the person has multiple seizures where they do not return to normal in between 3. If the person has a bad injury, such as a broken bone or head wound during the seizure 4. If they do not start breathing normally once the seizure stops 5. If the person is - call for help or go to the ER immediately 6. If the person has diabetes or serious heart problem 7. You are concerned something else could be wrong 8. If the person is more confused or upset after a seizures than they usually are (especially if the confusion makes them violent) *you may choose to take that person to the ER yourself if you have a quick and safe way to get them there. Location, Location, Location! The most dangerous part about a seizure is often WHERE it happens. Any situation in which a brief loss of awareness could lead to injury or to the person with seizures, or to somebody else, should be avoided. If necessary, such activities should only be done with close observation by a responsible adult. Examples include being near water in which a person could drown, including a bath tub, guns, flames, heights, and operating heavy machinery. documented in this encounter [facility] 11-28-2021 History of Presen t illness Narrative INSOMNIA- (trouble sleeping) Onset- chronic Frequency- nightly Describe sleep problem (trouble falling asleep, early awakening, etc) - all Treatment tried and response - amitriptyline and tizanidine Additional Comments- Pt needs refills on meds. ANXIETY/DEPRESSION- Patient her for anxiety/depression. Pt is currently being treated with lexapro. Good control with medication .Substance abuse - NONE. GERD- Mayuri presents to the office today for follow-up of GERD. Pt denies dysphagia. Pt has tried nexium with good effectiveness. Control - Other comments- Denies increase pain or cramping, long periods. ALLERGY- Mayuri Smith presents for evaluation/follow up for allergies. Eyes red/itchy/tearing: yes Nasal congestion: yes Runny nose: yes Ear pain: no Sinus pain: no she denies fever, chills, sore throat, cough, sputum, SOB, pleuritic pain, nausea, vomiting, rash. Previous treatment tried: listed meds ASTHMA- Mayuri Smith is a 31 y.o. female who comes in for a/an f/u asthma eval Associated sx include Nasal Congestion: no Fever: no Cough: no Wheezing: no Shortness of breath: no Other: no Current medications effectiveness- rx meds Also Sz d/o. No breakthrough. Also IFG. Watching diet. INSOMNIA- (trouble sleeping) Onset- chronic Frequency- nightly Describe sleep problem (trouble falling asleep, early awakening, etc) - all Treatment tried and response - amitriptyline and tizanidine Additional Comments- Pt needs refills on meds. ANXIETY/DEPRESSION- Patient her for anxiety/depression. Pt is currently being treated with lexapro. Good control with medication .Substance abuse - NONE. GERD- Mayuri presents to the office today for follow-up of GERD. Pt denies dysphagia. Pt has tried nexium with good effectiveness. Control - Other comments- Denies increase pain or cramping, long periods. ALLERGY- Mayuri Smith presents for evaluation/follow up for allergies. Eyes red/itchy/tearing: yes Nasal congestion: yes Runny nose: yes Ear pain: no Sinus pain: no she denies fever, chills, sore throat, cough, sputum, SOB, pleuritic pain, nausea, vomiting, rash. Previous treatment tried: listed meds ASTHMA- Mayuri Smith is a 31 y.o. female who comes in for a/an f/u asthma eval Associated sx include Nasal Congestion: no Fever: no Cough: no Wheezing: no Shortness of breath: no Other: no Current medications effectiveness- rx meds Also Sz d/o. No breakthrough. Also IFG. Watching diet. General: No fever, chills, weight loss. HEENT: No sinus pain, ear pain, sore throat. Neck: No LAD. Lungs: No cough, sputum, pleuritic pain, hemoptysis, SOB. CV: No chest pain, palpitation, orthopnea, PND, edema. GI: No abd pain, nausea, vomiting, diarrhea, constipation, melena, hematochezia. : No dysuria, frequency, hematuria. Skin: No rash or lesion. Neuro: No mental status changes, headache, focal neurologic complaints. Objective: Blood pressure (!) 133/28, pulse 103, weight 62.9 kg (138 lb 9.6 oz), SpO2 99 %, not currently . Results for orders placed or performed in visit on 11/27/21 LIPID PANEL W CALCULATED LDL Result Value Ref Range CHOLESTEROL 282 (H) 100 - 199 MG/DL TRIGLYCERIDE 114 <150 MG/DL HDL CHOLESTEROL 74 (H) 40 - 60 MG/DL LDL CHOLESTEROL, CALCULATED 185 (H) 0 - 100 MG/DL VLDL 23 5.0 - 25.0 MG/DL TCHOL/HDL RATIO, MANUAL ENTER 3.81 RATIO HEPATIC FUNCTION PANEL Result Value Ref Range ALBUMIN 4.2 3.5 - 5.0 G/DL BILIRUBIN, TOTAL 0.5 0.2 - 1.2 MG/DL ALKALINE PHOSPHATASE 90 38 - 126 IU/L AST 18 15 - 41 IU/L BILIRUBIN, DIRECT 0.0 0.0 - 0.2 MG/DL PROTEIN, TOTAL 8.5 (H) 6.3 - 8.2 GM/DL ALT 15 14 - 54 IU/L BASIC METABOLIC PANEL Result Value Ref Range GLUCOSE 75 70 - 100 MG/DL BUN 11 7 - 20 MG/DL CREATININE SERUM 0.75 0.52 - 1.04 MG/DL SODIUM 138 136 - 145 MMOL/L POTASSIUM 3.5 3.5 - 5.1 MMOL/L CHLORIDE 100 98 - 107 MMOL/L CARBON DIOXIDE (CO2) 23 22 - 30 MMOL/L ANION GAP 15 8 - 16 MMOL/L CALCIUM 9.6 8.4 - 10.2 MG/DL ESTIMATED GFR, NON AMER 95 ml/min/1.73sq.m ESTIMATED GFR, 114 ml/min/1.73sq.m GFR COMMENT Average GFR for 30-39 years old = 107. HEENT: NC/AT, PERRLA, EOMI, fundi benign, external ears normal, OP normal. Neck: No LAD/thyromegaly. No JVD/bruit. Lungs: Clear to auscultation bilaterally. No wheezes, rales, ronchi. Heart: RRR. No S3/S4. Abdomen: Soft, NT/ND, normal bowel sounds, no HSM, no bruits. Extremities: No clubbing, cyanosis, edema. Normal pulses. Neurologic: CN II-XII intact. Strength/DTR's/sensation symmetric. Cerebellar function normal. Skin: No rash or suspicious lesions. Musculoskeletal: No edema, redness, warmth, deformities. Psychiatric: Alert and oriented. Affect and mood normal. Assessment and Plan: 1. Intrinsic asthma - montelukast 10 MG tablet; Take 1 tablet by mouth daily. Dispense: 30 tablet; Refill: 5 - Symbicort 160-4.5 MCG/ACT Aerosol inhaler; Inhale 2 puffs 2 times daily. Dispense: 10.2 g; Refill: 5 2. Allergic rhinitis, unspecified seasonality, unspecified trigger - montelukast 10 MG tablet; Take 1 tablet by mouth daily. Dispense: 30 tablet; Refill: 5 3. Anxious depression - venlafaxine 150 MG Cap SR 24HR capsule XR; Take 1 capsule by mouth daily. Dispense: 30 capsule; Refill: 5 4. Congenital scoliosis - cyclobenzaprine 10 MG tablet; Take 1 tablet by mouth 2 times daily. Dispense: 60 tablet; Refill: 5 5. Gastroesophageal reflux disease without esophagitis - omeprazole [address] capsule; Take 1 capsule by mouth daily. Dispense: 30 capsule; Refill: 5 6. Intractable epilepsy without status epilepticus, unspecified epilepsy type - lamoTRIgine (LaMICtal) 100 MG tablet; Take 1 tab PO each morning and 2 tabs PO QHS Dispense: 90 tablet; Refill: 5 - LAMOTRIGINE LEVEL; Future 7. Primary insomnia - amitriptyline 150 MG tablet; Take 1 tablet by mouth at bedtime. Dispense: 30 tablet; Refill: 5 - tizanidine 2 MG tablet; Take 2 tablets by mouth 2 times daily. Dispense: 120 tablet; Refill: 5 8. Impaired fasting glucose Discussed lowering carbohydrate intake, mixing glycemic indices, and increasing activity. - BASIC METABOLIC PANEL; Future - HEPATIC FUNCTION PANEL; Future - LIPID PANEL W CALCULATED LDL; Future 9. Seizure - LAMOTRIGINE LEVEL; Future 10. Persistent insomnia Roddy Cunningham MD 11/28/2021 documented in this encounter [facility] 08-07-2021 History of Presen t illness Narrative NEUROLOGY OUTPATIENT FOLLOW-UP 08/07/2021 Patient: Mayuri Smith Date of : 1990 Primary Care Provider: Roddy Cunningham Neurology Provider for this visit: Nora Ayers APRN-ANDRE - - - - - - - - - - - - - - - - - - - - - - - - - - - - - - - - - - - - - - ASSESSMENT & PLAN for this 31 y.o. female: Epilepsy NOS- Condition stable. Patient denies any seizure activity for 5 years. Lamictal 100mg in am and 200mg in evening Continue with folic acid supplementation Will continue to monitor and make further recommendations based on clinical course Seizure precautions- educated in AVS Patient to follow up in 9 months. Educated to contact the office with questions, concerns, or worsening symptoms. This provider spent ample amount of time reviewing patient's chart. This includes: provider notes, therapy, labs, imaging, procedures, medications, etc.. 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 Follow-up: Return in about 9 months (around 05/07/2022), or if symptoms worsen or fail to improve. - - - - - - - - - - - - - - - - - - - - - - - - - - - - - - - - - - - - - - DATA/Testing: (MRI/CT/XR, EEG, EMG, CSF, Cardiac, Abnl Labs, Nl labs) No neuroimaging to review at this time SUBJECTIVE: Chief Complaint: Follow-up for seizures Interval History: Informant(s): .the patient Patient presents in follow up for seizures. Patient states that she has been doing well since her last appointment. Her last seizure was over 5 years prior. She is compliant with Lamictal and denies any side effects. Patient is also taking a folic acid supplement Patient is sleeping 8 hours a night and feels well rested. Mood is well controlled. 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 Is consuming 2-3 meals a day. Independent in all activities. She manages own medications and finances. Lives with . Patient is unsure of what occurs during seizures. She states that she loses consciousness and is amnestic afterwards. Is back to baseline within hours of episode. Patent is independent in all adl's. Denies any recent lapses in time, uncontrolled movements, incontinence. Denies any unxeplained injuries. Denies headache, diplopia, blurred vision, dysarthria, dysphagia, focal weakness, sensory changes. Review of Illness: 04/04/20-Mrs. Smith returns to the office for an annual follow-up for epilepsy. She was last seen in March 2019. The patient's last known seizure was in August 2016. Patient remains on Folic Acid and Lamictal. The patient denies any problems, concerns, and denies any seizures. She reports being faithful with her medications. She has [employer] paperwork today. AED History Lamictal OARRS--Flexeril Review Of Systems Currently Denies: Gen: fevers, chills, appetite or weight changes ENT: dry mouth, ringing in the ears CV: chest pain, palpitations Resp: cough, shortness of breath GI: abdominal pain, nausea : urinary incontinence, dysuria MSK: muscle cramps, Skin: rashes Hematologic: bruises Tobacco use: reports that she has never smoked. She has never used smokeless tobacco. Medications: Current Outpatient Medications Medication Instructions acetaminophen (TYLENOL) 1,000 mg, Oral, EVERY 6 HOURS NEEDED Albuterol Sulfate (PROAIR HFA IN) 2 puffs, Inhalation, NEEDED amitriptyline (ELAVIL) 150 mg, Oral, DAILY AT BEDTIME Anthralin (ZITHRANOL) 1 % Shampoo TWICE WEEKLY Calcium Carbonate (CALCIUM 600 PO) 600 mg, Oral, DAILY clobetasol 0.05 % Solution Topical, 2 TIMES DAILY, To the affected scalp area in the morning and the evening cyclobenzaprine (FLEXERIL) 10 mg, Oral, 2 TIMES DAILY fluticasone 50 MCG/ACT Suspension 1 spray, Nasal, EVERY 2 DAYS, In each nostril folic acid (FOLVITE) 2 mg, Oral, DAILY ketoconazole 2 % Shampoo shampoo WASH THE SCALP THREE TIMES A WEEK. LET SIT FOR 3-5 MINUTES BEFORE RINSING lamoTRIgine (LaMICtal) 100 MG tablet Take 1 tab PO each morning and 2 tabs PO QHS Melatonin 300 MCG Tab DAILY AT BEDTIME montelukast (SINGULAIR) 10 mg, Oral, DAILY Multiple Vitamin (MULTIVITAMIN PO) No dose, route, or frequency recorded. norgestimate-ethinyl estradiol 0.25-35 MG-MCG tablet 1 tablet, Oral, DAILY omeprazole (PRILOSEC) 40 mg, Oral, DAILY predniSONE 20 MG tablet Take 3 tabs PO daily x 3 days, 2 tabs PO daily x 3 days, 1 tab PO daily x 3 days, 1/2 tab PO daily x 4 days Symbicort 160-4.5 MCG/ACT Aerosol inhaler 2 puffs, Inhalation, 2 TIMES DAILY tizanidine (ZANAFLEX) 4 mg, Oral, 2 TIMES DAILY venlafaxine (EFFEXOR-XR) 150 mg, Oral, DAILY OBJECTIVE: DNFC = Does NOT follow commands TONEY = Unable to assess BP 128/80 (BP Location: Left arm, BP Position: Sitting) Pulse 102 Ht 1.448 m (4' 9 ) Wt 61.7 kg (136 lb) SpO2 98% BMI 29.43 kg/m Smoking Status Never Smoker Physical Exam GENERAL: General Appearance: In NAD Neck: Supple Respiratory Effort: Normal Extremities: No edema Skin: No rashes visualized MENTAL STATUS: Alertness, Attention Span & Concentration: Normal Language: Normal Speech: Normal Orientation: Normal Memory, Recent & Remote: Normal Fund of Knowledge: Normal CRANIAL NERVES: II - Visual Julian: Normal II, III: Pupils: PERRL III, IV, : Eye Movements: Normal (EOMI, No ptosis, No nystagmus) V - Facial Sensation: right flattened nasolabial fold- chronic VII: Face Symmetry & Strength: Normal VIII Hearing: Normal IX, X Palate:: Normal XI - Shoulder Shrug: Normal XII - Tongue Protrusion: Normal COORDINATION & GROSS MOTOR: Abnormal Movements: None Coordination [id number]: Normal Coordination Gbrf-Cihv-Hhez: Normal Drift: None Tone: Normal Bulk: Normal MUSCLE STRENGTH: Right Muscle Strength Left 5 Shoulder Abduction (Deltoid) 5 5 Elbow Flexion (Biceps) 5 5 Elbow Extension (Triceps) 5 5 Finger Abduction (Interossei) 5 5 Hip Flexion (Iliopsoas) 5 5 Knee Extension (Quads) 5 5 Knee Flexion (Hamstrings) 5 5 Dorsiflexion (Anterior Tibialis) 5 MOTOR KOHLI: 5 Normal (Normal Power) 4 Mild Weakness (Movement against moderate resistance over a full range of motion) 3 Moderate Weakness (Movement against gravity over almost full range of motion) 2 Severe Weakness (Movement with gravity eliminated over almost full range of motion) 1 Trace Movement (flicker of contraction visible or palpable) 0 No Movement (No contraction visible or palpable) TONEY Unable to Assess SENSATION: Fine Touch: Normal documented in this encounter [employer] [facility] 08-07-2021 Instructions STELLA Gross - 08/07/2021 8:00 AM EST Seizure Activity Restrictions Activity restrictions include: No driving vehicles of any sort (car/ truck/ motorcycle, bicycle, etc.) No operation of heavy or mechanized equipment. No working at heights No bathing/ swimming alone No contact sports No work with hazardous materials or tools No babysitting No participation in any activity that could foreseeable end up in injury for you or others if you lost consciousness during the midst of the activity. Use your common sense. No return to the above activities until cleared by a physician to do so. Activity restrictions last for at least 3-6 months from your most recent or any future seizure or spell of confusion, decreased awareness, or inability to interact with the environment. The activity restrictions clock will reset to an additional 3-6 months with any additional seizure or spell. If these are on-the-job activities, then activity restrictions last for at least 6 months. Do NOT return to these activites until released by another qualified license personel Call 911 if patient has seizure or spell lasting longer than 5 minutes or has 2 seizures/ spells in a row without return to baseline in between the seizures/spells. Seizure First Aid First Aid for Seizures 1. Stay calm and be reassuring 2. Try to keep the person from falling on hard or sharp objects 3. If possible lay the person down and roll them onto their side 4. Try to put something soft under the person's head 5. Use a watch to time the seizure as soon as you see one begin 6. Do NOT put anything in the person's mouth!!! 7. Try to save the person from injury, but do NOT hold the person down or keep them from moving holding someone down could hurt them MORE!!! 8. Stay with the person until the seizure stops 9. If they are very upset or violent stay back 10. Do not try to give the person water or anything else by mouth during a seizure, wait until they are alert again and can swallow without choking 11. If needed, the person should be allowed to rest while someone can watch them and can watch for more seizures someone should stay nearby until they are alert again When Should I Call 911 or go to the ER*? 1. If a seizure lasts more than 5 minutes 2. If the person has multiple seizures where they do not return to normal in between 3. If the person has a bad injury, such as a broken bone or head wound during the seizure 4. If they do not start breathing normally once the seizure stops 5. If the person is call for help or go to the ER immediately 6. If the person has diabetes or serious heart problem 7. You are concerned something else could be wrong 8. If the person is more confused or upset after a seizures than they usually are (especially if the confusion makes them violent) *you may choose to take that person to the ER yourself if you have a quick and safe way to get them there. Location, Location, Location! The most dangerous part about a seizure is often WHERE it happens. Any situation in which a brief loss of awareness could lead to injury or to the person with seizures, or to somebody else, should be avoided. If necessary, such activities should only be done with close observation by a responsible adult. Examples include being near water in which a person could drown, including a bath tub, guns, flames, heights, and operating heavy machinery. documented in this [facility] 01-24-2021 History of Presen t illness Narrative Tell me in your own words what we are seeing you for today? Following up on seizures I see that we have been seeing you for (seizures) any updates? Pt is stable I see that we have been prescribing () How are you doing on these medication's? 1) When was your last seizure? 4-5 years - if they had a seizure are they driving? yes NEUROLOGY OUTPATIENT FOLLOW-UP 01/24/2021 Patient: Mayuri Smith Date of : 1990 Primary Care Provider: Roddy Cunningham Neurology Provider for this visit: STELLA Gross - - - - - - - - - - - - - - - - - - - - - - - - - - - - - - - - - - - - - - ASSESSMENT & PLAN for this 30 y.o. female: Epilepsy NOS- Condition stable. Patient denies any seizure activity for 5 years. Lamictal 100mg in am and 200mg in evening Continue with folic acid supplementation Will continue to monitor Seizure precautions- educated in AVS Patient to follow up in 6 months. Educated to contact the office with questions, concerns, or worsening symptoms. This provider spent ample amount of time reviewing patient's chart. This includes: provider notes, therapy, labs, imaging, procedures, medications, etc.. Orders Placed This Encounter lamoTRIgine (LaMICtal) 100 MG tablet folic acid 1 MG tablet Important to note, also Past Medical History: Diagnosis Date Epilepsy 06/20/2009 Foot deformity 2004 left navicular accessory, uses wedge right foot Papanicolaou smear 10/2014 Psoriatic arthritis 2019 Dermotologist dx Urinary frequency 01/26/2010 Additionally, has a past surgical history that includes knee surgery (04/2012); back surgery (2010); and valvuloplasty (1989). Follow-up: Return in about 6 months (around 07/27/2021), or if symptoms worsen or fail to improve. - - - - - - - - - - - - - - - - - - - - - - - - - - - - - - - - - - - - - - DATA/Testing: (MRI/CT/XR, EEG, EMG, CSF, Cardiac, Abnl Labs, Nl labs) No neuroimaging to review at this time SUBJECTIVE: Chief Complaint: Follow-up for seizures Interval History: Informant(s): .the patient Patient presents in follow up for seizures. Patient states that she has been doing well since her last appointment. States that her last seizure was 5 years prior. Is taking folic acid supplement and Lamictal. Is compliant with regimen and denies any side effects. Patient is unsure of what occurs during seizures. She states that she loses consciousness and is amnestic afterwards. Is back to baseline within hours of episode. Patent is independent in all adl's. Manages own medications and finances. Drives. 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 Denies any lapses in time, uncontrolled movements, incontinence. Denies any unxeplained injuries. Sleeps 8 hours a night and feels well rested upon waking. Consumes 2-3 meals a day. Denies headache, diplopia, blurred vision, dysarthria, dysphagia, focal weakness, sensory changes. Review of Illness: 04/04/20-Mrs. Smith returns to the office for an annual follow-up for epilepsy. She was last seen in March 2019. The patient's last known seizure was in August 2016. Patient remains on Folic Acid and Lamictal. The patient denies any problems, concerns, and denies any seizures. She reports being faithful with her medications. She has [employer] paperwork today. AED History Lamictal OARRS--Flexeril Review Of Systems Currently Denies: Gen: fevers, chills, appetite or weight changes ENT: dry mouth, ringing in the ears CV: chest pain, palpitations Resp: cough, shortness of breath GI: abdominal pain, nausea : urinary incontinence, dysuria MSK: muscle cramps, Skin: rashes Hematologic: bruises Tobacco use: reports that she has never smoked. She has never used smokeless tobacco. Medications: Current Outpatient Medications Medication Instructions acetaminophen (TYLENOL) 1,000 mg, Oral, EVERY 6 HOURS NEEDED Albuterol Sulfate (PROAIR HFA IN) 2 puffs, Inhalation, NEEDED amitriptyline (ELAVIL) 150 mg, Oral, DAILY AT BEDTIME Anthralin (ZITHRANOL) 1 % Shampoo TWICE WEEKLY Calcium Carbonate (CALCIUM 600 PO) 600 mg, Oral, DAILY clobetasol 0.05 % Solution Topical, 2 TIMES DAILY, To the affected scalp area in the morning and the evening cyclobenzaprine (FLEXERIL) 10 mg, Oral, 2 TIMES DAILY fluticasone 50 MCG/ACT Suspension 1 spray, Nasal, EVERY 2 DAYS, In each nostril folic acid (FOLVITE) 2 mg, Oral, DAILY lamoTRIgine (LaMICtal) 100 MG tablet Take 1 tab PO each morning and 2 tabs PO QHS Melatonin 300 MCG Tab DAILY AT BEDTIME montelukast (SINGULAIR) 10 mg, Oral, DAILY Multiple Vitamin (MULTIVITAMIN PO) No dose, route, or frequency recorded. norgestimate-ethinyl estradiol 0.25-35 MG-MCG tablet 1 tablet, Oral, DAILY omeprazole (PRILOSEC) 40 mg, Oral, DAILY Symbicort 160-4.5 MCG/ACT Aerosol inhaler 2 puffs, Inhalation, 2 TIMES DAILY Taltz 1 mg, Subcutaneous, EVERY 30 DAYS tizanidine (ZANAFLEX) 4 mg, Oral, 2 TIMES DAILY venlafaxine (EFFEXOR-XR) 150 mg, Oral, DAILY OBJECTIVE: DNFC = Does NOT follow commands TONEY = Unable to assess BP 124/60 (BP Location: Left arm, BP Position: Sitting) Pulse 97 Ht 1.448 m (4' 9 ) Wt 62.6 kg (138 lb) SpO2 99% BMI 29.86 kg/m Smoking Status Never Smoker Physical Exam GENERAL: General Appearance: In NAD Neck: Supple Respiratory Effort: Normal Extremities: No edema Skin: No rashes visualized MENTAL STATUS: Alertness, Attention Span & Concentration: Normal Language: Normal Speech: Normal Orientation: Normal Memory, Recent & Remote: Normal Fund of Knowledge: Normal CRANIAL NERVES: II - Visual Julian: Normal II, III: Pupils: PERRL III, IV, : Eye Movements: Normal (EOMI, No ptosis, No nystagmus) V - Facial Sensation: right flattened nasolabial fold- chronic VII: Face Symmetry & Strength: Normal VIII Hearing: Normal IX, X Palate:: Normal XI - Shoulder Shrug: Normal XII - Tongue Protrusion: Normal COORDINATION & GROSS MOTOR: Abnormal Movements: None Coordination [id number]: Normal Coordination [id number]-[id number]: Normal Drift: None Tone: Normal Bulk: Normal MUSCLE STRENGTH: Right Muscle Strength Left 5 Shoulder Abduction (Deltoid) 5 5 Elbow Flexion (Biceps) 5 5 Elbow Extension (Triceps) 5 5 Finger Abduction (Interossei) 5 5 Hip Flexion (Iliopsoas) 5 5 Knee Extension (Quads) 5 5 Knee Flexion (Hamstrings) 5 5 Dorsiflexion (Anterior Tibialis) 5 MOTOR KOHLI: 5 Normal (Normal Power) 4 Mild Weakness (Movement against moderate resistance over a full range of motion) 3 Moderate Weakness (Movement against gravity over almost full range of motion) 2 Severe Weakness (Movement with gravity eliminated over almost full range of motion) 1 Trace Movement (flicker of contraction visible or palpable) 0 No Movement (No contraction visible or palpable) TONEY Unable to Assess SENSATION: Fine Touch: Normal documented in this encounter [facility] 01-24-2021 Instructions Nora Ayers APRN-CNP - 01/24/2021 11:00 AM EDT Seizure Activity Restrictions Activity restrictions include: No driving vehicles of any sort (car/ truck/ motorcycle, bicycle, etc.) No operation of heavy or mechanized equipment. No working at heights No bathing/ swimming alone No contact sports No work with hazardous materials or tools No babysitting No participation in any activity that could foreseeable end up in injury for you or others if you lost consciousness during the midst of the activity. Use your common sense. No return to the above activities until cleared by a physician to do so. Activity restrictions last for at least 3-6 months from your most recent or any future seizure or spell of confusion, decreased awareness, or inability to interact with the environment. The activity restrictions clock will reset to an additional 3-6 months with any additional seizure or spell. If these are on-the-job activities, then activity restrictions last for at least 6 months. Do NOT return to these activites until released by another qualified license personel Call 911 if patient has seizure or spell lasting longer than 5 minutes or has 2 seizures/ spells in a row without return to baseline in between the seizures/spells. Seizure First Aid First Aid for Seizures 1. Stay calm and be reassuring 2. Try to keep the person from falling on hard or sharp objects 3. If possible lay the person down and roll them onto their side 4. Try to put something soft under the person's head 5. Use a watch to time the seizure as soon as you see one begin 6. Do NOT put anything in the person's mouth!!! 7. Try to save the person from injury, but do NOT hold the person down or keep them from moving holding someone down could hurt them MORE!!! 8. Stay with the person until the seizure stops 9. If they are very upset or violent stay back 10. Do not try to give the person water or anything else by mouth during a seizure, wait until they are alert again and can swallow without choking 11. If needed, the person should be allowed to rest while someone can watch them and can watch for more seizures someone should stay nearby until they are alert again When Should I Call 911 or go to the ER*? 1. If a seizure lasts more than 5 minutes 2. If the person has multiple seizures where they do not return to normal in between 3. If the person has a bad injury, such as a broken bone or head wound during the seizure 4. If they do not start breathing normally once the seizure stops 5. If the person is call for help or go to the ER immediately 6. If the person has diabetes or serious heart problem 7. You are concerned something else could be wrong 8. If the person is more confused or upset after a seizures than they usually are (especially if the confusion makes them violent) *you may choose to take that person to the ER yourself if you have a quick and safe way to get them there. Location, Location, Location! The most dangerous part about a seizure is often WHERE it happens. Any situation in which a brief loss of awareness could lead to injury or to the person with seizures, or to somebody else, should be avoided. If necessary, such activities should only be done with close observation by a responsible adult. Examples include being near water in which a person could drown, including a bath tub, guns, flames, heights, and operating heavy machinery. . 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 Gastroesophageal reflux disease without esophagitis Esophageal reflux Intractable epilepsy without status epilepticus, unspecified epilepsy type Primary insomnia Persistent disorder of initiating or maintaining sleep Seizure Other convulsions Persistent insomnia Persistent disorder of initiating or maintaining sleep [facility] Diagnosis Intrinsic asthma- Primary Intrinsic asthma, unspecified Allergic rhinitis, unspecified seasonality, unspecified trigger 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 Gastroesophageal reflux disease without esophagitis Esophageal reflux Primary insomnia Persistent disorder of initiating or maintaining sleep Dysfunctional uterine bleeding Other disorder of menstruation and other abnormal bleeding from female genital tract Seizure Other convulsions Mixed hyperlipidemia [facility] Diagnosis Impaired fasting glucose- Primary Intrinsic asthma Intrinsic asthma, unspecified Allergic rhinitis, unspecified seasonality, unspecified trigger 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 Dysfunctional uterine bleeding Other disorder of menstruation and other abnormal bleeding from female genital tract Gastroesophageal reflux disease without esophagitis Esophageal reflux Primary insomnia Persistent disorder of initiating or maintaining sleep Mixed hyperlipidemia Intractable epilepsy without status epilepticus, unspecified epilepsy type Seizure Other convulsions [facility] Diagnosis Impaired fasting glucose- Primary Intrinsic asthma Intrinsic asthma, unspecified Allergic rhinitis, unspecified seasonality, unspecified trigger 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 Dysfunctional uterine bleeding Other disorder of menstruation and other abnormal bleeding from female genital tract Gastroesophageal reflux disease without esophagitis Esophageal reflux Primary insomnia Persistent disorder of initiating or maintaining sleep Mixed hyperlipidemia documented in this encounter [facility] Summary Purpose Family History No Family History Records FoundNo Family History Records FoundNo Family History Records FoundNo Family History Records FoundNo Family History Records Found Advance Directives No Advanced Directives Records FoundDocuments on File Type Date Recorded Patient Tool Inspector Expl anation Advance Directives and Living Will Documents on File Type Date Recorded Patient Tool Inspector Expl anation Advance Directives and Livin g Will 06/13/2020 7:58 AM Documents on File Type Date Recorded Patient Tool Inspector Expl anation Advance Directives and Livin g Will 06/13/2020 7:58 AM Documents on File Type Date Recorded Patient Tool Inspector Expl anation Advance Directives and Living Will History of Present Illness * Roddy Cunningham MD - 10/30/2018 10:10 AM EST Formatting of this note may be different from the original. INSOMNIA- (trouble sleeping) Onset- chronic Frequency- nightly Describe sleep problem (trouble falling asleep, early awakening, etc) - all Treatment tried and response - amitriptyline and tizanidine Additional Comments- PT needs refills on meds. ANXIETY/DEPRESSION- Patient her for anxiety/depression. Pt is currently being treated with lexapro. Good control with medication .Substance abuse - NONE. GERD- Mayuri presents to the office today for follow-up of GERD. Pt denies dysphagia. Pt has tried nexium with good effectiveness. Control - Other comments- Pt needs control pill. Pt unsure when last pap was. Denies increase pain or cramping, long periods. ACUTE SICK VISIT- Onset: 1 week Nasal Congestion: yes Fever: no Cough: yes Sore Throat: no Ear Pain: no Headache/Sinus Pain: yes Shortness of Breath/Wheezing: mild SOB Nausea/Vomiting/Diarrhea: no Treatments tried and their effectiveness: was treated with atb approx 1 month ago for the walk in clinic Also Sz d/o. No breakthrough. General: No fever, chills, weight loss. HEENT: Yes sinus pain. No ear pain, sore throat. Neck: No LAD. Lungs: Yes cough, sputum. No pleuritic pain, hemoptysis, SOB. CV: No chest pain, palpitation, orthopnea, PND, edema. GI: No abd pain, nausea, vomiting, diarrhea, constipation, melena, hematochezia. : No dysuria, frequency, hematuria. Skin: No rash or lesion. Neuro: No mental status changes, headache, focal neurologic complaints. Objective: Blood pressure 126/84, pulse 78, temperature 98.1 F (36.7 C), temperature source Oral, resp. rate 16, weight 65.5 kg (144 lb 6.4 oz), SpO2 98 %, not currently . No results found for this or any previous visit. HEENT: NC/AT, PERRLA, EOMI, fundi benign, external ears normal, OP normal. Maxillary sinuses tender. Neck: Yes LAD. No thyromegaly. No JVD/bruit. Lungs: Clear to auscultation bilaterally. No wheezes, rales, ronchi. Heart: RRR. No S3/S4. Abdomen: Soft, NT/ND, normal bowel sounds, no HSM, no bruits. Extremities: No clubbing, cyanosis, edema. Normal pulses. Neurologic: CN II-XII intact. Strength/DTR's/sensation symmetric. Cerebellar function normal. Skin: No rash or suspicious lesions. Musculoskeletal: No edema, redness, warmth, deformities. Psychiatric: Alert and oriented. Affect and mood normal. Assessment and Plan: 1. Primary insomnia - tizanidine 2 MG Tab; Take 2 tablets by mouth 2 times daily. Dispense: 360 tablet; Refill: 1 - amitriptyline 150 MG Tab; Take 1 tablet by mouth at bedtime. Dispense: 90 tablet; Refill: 1 2. Anxious depression - escitalopram (LEXAPRO) 20 MG Tab tablet; Take 1 tablet by mouth daily. Dispense: 90 tablet; Refill: 1 3. Chronic low back pain, unspecified back pain laterality, with sciatica presence unspecified - cyclobenzaprine 10 MG Tab tablet; Take 1 tablet by mouth 2 times daily. Dispense: 180 tablet; Refill: 1 4. Congenital scoliosis - cyclobenzaprine 10 MG Tab tablet; Take 1 tablet by mouth 2 times daily. Dispense: 180 tablet; Refill: 1 5. Gastroesophageal reflux disease without esophagitis - omeprazole [address] capsule; Take 1 capsule by mouth daily. Dispense: 90 capsule; Refill: 1 6. Convulsive generalized seizure disorder 7. Acute maxillary sinusitis, recurrence not specified Can take OTC cold medication as needed. Can use acetaminophen or an NSAID for pain or fever. Drink plenty of fluids. Keep your environment humidified. Elevate your head while sleeping. Follow up for persistent or recurrent fever, worsening symptoms, or symptoms 10-14 days. - cefdinir (OMNICEF) 300 MG capsule; Take 1 capsule by mouth every 12 hours for 10 days. Dispense: 20 capsule; Refill: 0 - fluconazole (DIFLUCAN) 150 MG Tab tablet; Take 1 tablet by mouth once for 1 dose. Dispense: 1 tablet; Refill: 0 Has labs from [facility]. Will drop off. Roddy Cunningham MD 10/30/2018 * Felecia Gunn LPN - 10/30/2018 10:10 AM EST Formatting of this note may be different from the original. INSOMNIA- (trouble sleeping) Onset- chronic Frequency- nightly Describe sleep problem (trouble falling asleep, early awakening, etc) - all Treatment tried and response - amitriptyline and tizanidine Additional Comments- PT needs refills on meds. ANXIETY/DEPRESSION- Patient her for anxiety/depression. Pt is currently being treated with lexapro. Good control with medication .Substance abuse - NONE. GERD- Mayuri presents to the office today for follow-up of GERD. Pt denies dysphagia. Pt has tried nexium with good effectiveness. Control - Other comments- Pt needs control pill. Pt unsure when last pap was. Denies increase pain or cramping, long periods. ACUTE SICK VISIT- Onset: 1 week Nasal Congestion: yes Fever: no Cough: no Sore Throat: no Ear Pain: no Headache/Sinus Pain: yes Shortness of Breath/Wheezing: no Nausea/Vomiting/Diarrhea: no Treatments tried and their effectiveness: was treated with atb approx 1 month ago for the walk in clinic in this encounter* Felecia Gunn LPN - 02/03/2019 3:10 PM EDT Pt here for genesite testing. Testing explained and form signed. Pt tolerated well documented in this encounter* Sonja Cruz MD - 03/30/2019 10:00 AM EDT CC: Epilepsy follow-up; last visit 02/17/2018 History of Present Illness Ms. Smith returns to the office for mgmt of epilepsy. She was last seen nearly 14 months ago and recently missed a follow up appointment. She remains on Lamictal total of 300 mg per day along with Folic Acid 2 mg daily. Last known seizure was August 2016. Patient again reports no seizures. She reports that she is taking both meds as prescribed. She and plan on trying for a child next year. Prior AEDs Lamictal OARRS--no meds Labs/Studies No new pertinent results Past Medical, Surgical, Social, Family History Updates 1. Medical--none 2. Surgical--none 3. Social--none 4. Family--none Current Outpatient Medications Medication Sig Last Dose Start Date End Date Authorizing Provider acetaminophen (TYLENOL) 500 MG Tab 1,000 mg, Oral, EVERY 6 HOURS NEEDED Taking 08/08/09 Historical Provider Albuterol Sulfate (PROAIR HFA IN) 2 puffs, Inhalation, NEEDED Taking 08/14/16 Historical Provider amitriptyline 150 MG Tab 150 mg, Oral, DAILY AT BEDTIME Taking 10/30/18 Roddy Cunningham MD Anthralin (ZITHRANOL) 1 % Shampoo TWICE WEEKLY Taking 08/03/15 Historical Provider Calcium Carbonate (CALCIUM 600 PO) 600 mg, Oral, DAILY Taking 08/03/15 Historical Provider clobetasol 0.05 % Solution Topical, 2 TIMES DAILY, To the affected scalp area in the morning and the evening Taking 08/14/16 Historical Provider cyclobenzaprine 10 MG Tab tablet 10 mg, Oral, 2 TIMES DAILY Taking 10/30/18 Roddy Cunningham MD duloxetine [address] Particles capsule DR 60 mg, Oral, DAILY Patient not taking: Reported on 02/08/2019 Not Taking 01/05/19 Roddy Cunningham MD fluticasone 50 MCG/ACT Suspension 1 spray, Nasal, EVERY 2 DAYS, In each nostril Taking 08/14/16 Historical Provider folic acid 1 MG Tab tablet 2 mg, Oral, DAILY Taking 02/17/18 Sonja Cruz MD lamoTRIgine (LAMICTAL) 100 MG Tab Take 1 tab PO each morning and 2 tabs PO QHS 02/26/19 Sonja Cruz MD Melatonin 300 MCG Tab DAILY AT BEDTIME Taking 08/03/15 Historical Provider Multiple Vitamin (MULTIVITAMIN PO) No dose, route, or frequency recorded. Taking 08/03/15 Historical Provider norgestimate-ethinyl estradiol 0.25-35 MG-MCG Tab tablet 1 tablet, Oral, DAILY Taking 05/20/18 Roddy Cunningham MD omeprazole [address] capsule 40 mg, Oral, DAILY Taking 10/30/18 Roddy Cunningham MD pseudoephedrine 30 MG Tab 60 mg, Oral, EVERY 6 HOURS NEEDED Taking 10/01/06 Historical Provider STELARA 45 MG/0.5ML Solution Prefilled Syringe injection No dose, route, or frequency recorded. Taking 10/09/18 Historical Provider tizanidine 2 MG Tab 4 mg, Oral, 2 TIMES DAILY Taking 10/30/18 Roddy Cunningham MD venlafaxine 150 MG Cap SR 24HR capsule XR 150 mg, Oral, DAILY 03/17/19 Roddy Cunningham MD No Known Allergies Review of Systems Constitutional: Negative for chills, fatigue, fever and unexpected weight change. HENT: Negative for congestion, hearing loss, rhinorrhea, tinnitus, trouble swallowing and voice change. Eyes: Negative for photophobia and visual disturbance. Respiratory: Negative for cough, choking and shortness of breath. Cardiovascular: Negative for chest pain, palpitations and leg swelling. Gastrointestinal: Negative for abdominal pain, blood in stool, constipation, diarrhea, nausea and vomiting. Endocrine: Negative for cold intolerance and heat intolerance. Genitourinary: Negative for difficulty urinating, frequency and urgency. Musculoskeletal: Negative for arthralgias, back pain, gait problem, myalgias, neck pain and neck stiffness. Skin: Negative for color change, rash and wound. Allergic/Immunologic: Negative for food allergies and immunocompromised state. Neurological: Negative for dizziness, tremors, seizures, syncope, facial asymmetry, speech difficulty, weakness, light-headedness, numbness and headaches. Hematological: Negative for adenopathy. Does not bruise/bleed easily. Psychiatric/Behavioral: Negative for agitation, behavioral problems, confusion, decreased concentration, dysphoric mood, hallucinations, self-injury, sleep disturbance and suicidal ideas. The patientis not nervous/anxious and is not hyperactive. Vitals: Blood pressure 138/78, pulse 108, resp. rate 16, height 1.448 m (4' 9 ), weight 62.6 kg (138 lb), not currently . Physical Exam Constitutional: She is oriented to person, place, and time. Vital signs are normal. HENT: Head: Normocephalic and atraumatic. Right Ear: Hearing and external ear normal. Left Ear: Hearing and external ear normal. Mouth/Throat: Oropharynx is clear and moist and mucous membranes are normal. Eyes: Conjunctivae, EOM and lids are normal. Neck: Normal range of motion. Cardiovascular: Normal rate and regular rhythm. Pulmonary/Chest: Effort normal. Abdominal: Soft. Normal appearance. There is no tenderness. Neurological: She is alert and oriented to person, place, and time. She has normal strength. Skin: Skin is warm, dry and intact. Neurologic Exam Mental Status Oriented to person, place, and time. Cranial Nerves CN III, IV, Extraocular motions are normal. Motor Exam Strength Strength 5/5 throughout. Assessment and Plan 1. Epilepsy NOS A. Patient is stable. Refills were granted on the Lamictal and Folic Acid for the next 12 months. Icounseled the patient to call me if she does get , as Lamictal levels can drop in . I explained that she should continue the Folic Acid, also. B. Patient will return in 12 months. Please note this visit consumed 15-20 minutes, of which half or more was dedicated to [id number] counseling of the problems/issues and coordination of all care. documented in this encounter* Roddy Cunningham MD - 05/27/2019 9:00 AM EDT INSOMNIA- (trouble sleeping) Onset- chronic Frequency- nightly Describe sleep problem (trouble falling asleep, early awakening, etc) - all Treatment tried and response - amitriptyline and tizanidine Additional Comments- PT needs refills on meds. ANXIETY/DEPRESSION- Patient her for anxiety/depression. Pt is currently being treated with lexapro. Good control with medication .Substance abuse - NONE. GERD- Mayuri presents to the office today for follow-up of GERD. Pt denies dysphagia. Pt has tried nexium with good effectiveness. Control - Other comments- Pt needs control pill. Pt unsure when last pap was. Denies increase pain or cramping, long periods. Also chronic LBP and Sz. General: No fever, chills, weight loss. HEENT: No sinus pain, ear pain, sore throat. Neck: No LAD. Lungs: No cough, sputum, pleuritic pain, hemoptysis, SOB. CV: No chest pain, palpitation, orthopnea, PND, edema. GI: No abd pain, nausea, vomiting, diarrhea, constipation, melena, hematochezia. : No dysuria, frequency, hematuria. Skin: No rash or lesion. Neuro: No mental status changes, headache, focal neurologic complaints. Objective: Blood pressure 123/77, pulse 107, weight 62.1 kg (137 lb), not currently . No results found for this or any previous visit. HEENT: NC/AT, PERRLA, EOMI, fundi benign, external ears normal, OP normal. Neck: No LAD/thyromegaly. No JVD/bruit. Lungs: Clear to auscultation bilaterally. No wheezes, rales, ronchi. Heart: RRR. No S3/S4. Abdomen: Soft, NT/ND, normal bowel sounds, no HSM, no bruits. Extremities: No clubbing, cyanosis, edema. Normal pulses. Neurologic: CN II-XII intact. Strength/DTR's/sensation symmetric. Cerebellar function normal. Skin: No rash or suspicious lesions. Musculoskeletal: No edema, redness, warmth, deformities. Psychiatric: Alert and oriented. Affect and mood normal. Assessment and Plan: 1. Dysfunctional uterine bleeding - norgestimate-ethinyl estradiol 0.25-35 MG-MCG Tab tablet; Take 1 tablet by mouth daily. Dispense:1 Package; Refill: 12 2. Chronic low back pain, unspecified back pain laterality, with sciatica presence unspecified - cyclobenzaprine 10 MG Tab tablet; Take 1 tablet by mouth 2 times daily. Dispense: 60 tablet; Refill: 5 3. Congenital scoliosis - cyclobenzaprine 10 MG Tab tablet; Take 1 tablet by mouth 2 times daily. Dispense: 60 tablet; Refill: 5 4. Primary insomnia - amitriptyline 150 MG Tab; Take 1 tablet by mouth at bedtime. Dispense: 30 tablet; Refill: 5 - tizanidine 2 MG Tab; Take 2 tablets by mouth 2 times daily. Dispense: 120 tablet; Refill: 5 5. Gastroesophageal reflux disease without esophagitis - omeprazole [address] capsule; Take 1 capsule by mouth daily. Dispense: 30 capsule; Refill: 5 6. Convulsive generalized seizure disorder 7. Anxious depression - venlafaxine 150 MG Cap SR 24HR capsule XR; Take 1 capsule by mouth daily. Dispense: 30 capsule; Refill: 5 Will check with insurance to see of they pay for BW and let us know. If they do will place the order. If not will use [place]. Roddy Cunningham MD 05/27/2019 * Laya Sorto MA - 05/27/2019 9:00 AM EDT INSOMNIA- (trouble sleeping) Onset- chronic Frequency- nightly Describe sleep problem (trouble falling asleep, early awakening, etc) - all Treatment tried and response - amitriptyline and tizanidine Additional Comments- PT needs refills on meds. ANXIETY/DEPRESSION- Patient her for anxiety/depression. Pt is currently being treated with lexapro. Good control with medication .Substance abuse - NONE. GERD- Mayuri presents to the office today for follow-up of GERD. Pt denies dysphagia. Pt has tried nexium with good effectiveness. Control - Other comments- Pt needs control pill. Pt unsure when last pap was. Denies increase pain or cramping, long periods. documented in this encounter* Roddy Cunningham MD - 11/26/2019 2:30 PM EST Last labs 02/05/2019 INSOMNIA- (trouble sleeping) Onset- chronic Frequency- nightly Describe sleep problem (trouble falling asleep, early awakening, etc) - all Treatment tried and response - amitriptyline and tizanidine Additional Comments- PT needs refills on meds. ANXIETY/DEPRESSION- Patient her for anxiety/depression. Pt is currently being treated with lexapro. Good control with medication .Substance abuse - NONE. GERD- Mayuri presents to the office today for follow-up of GERD. Pt denies dysphagia. Pt has tried nexium with good effectiveness. Control - Other comments- Pt needs control pill.Denies increase pain or cramping, long periods. Regularwith minimal pain and minimal bleeding. Also chronic LBP and Sz. No breakthrough Sz. Acne controlled. Subjective: Mayuri Smith presents for evaluation/follow up for allergies. Eyes red/itchy/tearing: no Nasal congestion: yes Runny nose: yes Ear pain: no Sinus pain: no she denies fever, chills, sore throat, cough, sputum, SOB, pleuritic pain, nausea, vomiting, rash. Previous treatment tried: Zyrtec. General: No fever, chills, weight loss. HEENT: No sinus pain, ear pain, sore throat. Neck: No LAD. Lungs: No cough, sputum, pleuritic pain, hemoptysis, SOB. CV: No chest pain, palpitation, orthopnea, PND, edema. GI: No abd pain, nausea, vomiting, diarrhea, constipation, melena, hematochezia. : No dysuria, frequency, hematuria. Skin: No rash or lesion. Neuro: No mental status changes, headache, focal neurologic complaints. Objective: Blood pressure (!) 172/95, pulse 104, resp. rate 18, height 1.448 m (4' 9 ), weight 60.3 kg (133 lb), not currently . No results found for this or any previous visit. HEENT: NC/AT, PERRLA, EOMI, fundi benign, external ears normal, OP normal. Neck: No LAD/thyromegaly. No JVD/bruit. Lungs: Clear to auscultation bilaterally. No wheezes, rales, ronchi. Heart: RRR. No S3/S4. Abdomen: Soft, NT/ND, normal bowel sounds, no HSM, no bruits. Extremities: No clubbing, cyanosis, edema. Normal pulses. Neurologic: CN II-XII intact. Strength/DTR's/sensation symmetric. Cerebellar function normal. Skin: No rash or suspicious lesions. Musculoskeletal: No edema, redness, warmth, deformities. Psychiatric: Alert and oriented. Affect and mood normal. Assessment and Plan: 1. Gastroesophageal reflux disease without esophagitis - omeprazole [address] capsule; Take 1 capsule by mouth daily. Dispense: 30 capsule; Refill: 5 - BASIC METABOLIC PANEL; Future - LIPID PANEL W CALCULATED LDL; Future 2. Primary insomnia - tizanidine 2 MG tablet; Take 2 tablets by mouth 2 times daily. Dispense: 120 tablet; Refill: 5 - amitriptyline 150 MG tablet; Take 1 tablet by mouth at bedtime. Dispense: 30 tablet; Refill: 5 3. Anxious depression - venlafaxine 150 MG Cap SR 24HR capsule XR; Take 1 capsule by mouth daily. Dispense: 30 capsule; Refill: 5 - BASIC METABOLIC PANEL; Future - LIPID PANEL W CALCULATED LDL; Future 4. Congenital scoliosis - cyclobenzaprine 10 MG tablet; Take 1 tablet by mouth 2 times daily. Dispense: 60 tablet; Refill: 5 5. Dysfunctional uterine bleeding - norgestimate-ethinyl estradiol 0.25-35 MG-MCG tablet; Take 1 tablet by mouth daily. Dispense: 1 Package; Refill: 12 6. Convulsive generalized seizure disorder - HEPATIC FUNCTION PANEL; Future - LAMOTRIGINE LEVEL; Future 7. Acne vulgaris 8. Allergic rhinitis, unspecified seasonality, unspecified trigger Roddy Cunningham MD 11/29/2019 * Laya Sorto MA - 11/26/2019 2:30 PM EST Last labs 02/05/2019 INSOMNIA- (trouble sleeping) Onset- chronic Frequency- nightly Describe sleep problem (trouble falling asleep, early awakening, etc) - all Treatment tried and response - amitriptyline and tizanidine Additional Comments- PT needs refills on meds. ANXIETY/DEPRESSION- Patient her for anxiety/depression. Pt is currently being treated with lexapro. Good control with medication .Substance abuse - NONE. GERD- Mayuri presents to the office today for follow-up of GERD. Pt denies dysphagia. Pt has tried nexium with good effectiveness. Control - Other comments- Pt needs control pill.Denies increase pain or cramping, long periods. Also chronic LBP and Sz. documented in this encounter* Sonja Cruz MD - 04/04/2020 1:00 PM EDT CC: Epilepsy History of Present Illness Mrs. Smith returns to the office for an annual follow-up for epilepsy. She was last seen in March 2019. The patient's last known seizure was in August 2016. Patient remains on Folic Acid and Lamictal. The patient denies any problems, concerns, and denies any seizures. She reports being faithful withher medications. She has BMV paperwork today. AED History Lamictal OARRS--Flexeril Labs/Studies No new pertinent results Past Medical, Surgical, Social, Family History Updates 1. Medical--none 2. Surgical--none 3. Social--none 4. Family--none Past Medical History: Diagnosis Date Epilepsy 06/20/2009 Foot deformity 2004 left navicular accessory, uses wedge right foot Papanicolaou smear 10/2014 Psoriatic arthritis 2019 Dermotologist dx Urinary frequency 01/26/2010 Past Surgical History: Procedure Laterality Date KNEE SURGERY 04/2012 BACK SURGERY 2010 ended up with wound vac due to infection VALVULOPLASTY 1989 for pulmonic stenosis Current Outpatient Medications Medication Sig Last Dose Start Date End Date Authorizing Provider acetaminophen (TYLENOL) 500 MG Tab 1,000 mg, Oral, EVERY 6 HOURS NEEDED Taking 08/08/09 Historical Provider Albuterol Sulfate (PROAIR HFA IN) 2 puffs, Inhalation, NEEDED Taking 08/14/16 Historical Provider amitriptyline 150 MG tablet 150 mg, Oral, DAILY AT BEDTIME 11/26/19 Roddy Cunningham MD Anthralin (ZITHRANOL) 1 % Shampoo TWICE WEEKLY Taking 08/03/15 Historical Provider Calcium Carbonate (CALCIUM 600 PO) 600 mg, Oral, DAILY Taking 08/03/15 Historical Provider clobetasol 0.05 % Solution Topical, 2 TIMES DAILY, To the affected scalp area in the morning and the evening Taking 08/14/16 Historical Provider cyclobenzaprine 10 MG tablet 10 mg, Oral, 2 TIMES DAILY 11/26/19 Roddy Cunningham MD fluticasone 50 MCG/ACT Suspension 1 spray, Nasal, EVERY 2 DAYS, In each nostril Taking 08/14/16 Historical Provider fluticasone-salmeterol 100-50 MCG/DOSE Aerosol Powder, breath activated inhaler 1 puff, Inhalation,EVERY 12 HOURS 03/02/20 Roddy Cunningham MD folic acid 1 MG Tab tablet 2 mg, Oral, DAILY Taking 03/30/19 Sonja Cruz MD lamoTRIgine (LAMICTAL) 100 MG Tab Take 1 tab PO each morning and 2 tabs PO QHS Taking 06/29/19 Sojna Cruz MD Melatonin 300 MCG Tab DAILY AT BEDTIME Taking 08/03/15 Historical Provider montelukast 10 MG tablet 10 mg, Oral, DAILY 11/26/19 Roddy Cunningham MD Multiple Vitamin (MULTIVITAMIN PO) No dose, route, or frequency recorded. Taking 08/03/15 Historical Provider norgestimate-ethinyl estradiol 0.25-35 MG-MCG tablet 1 tablet, Oral, DAILY 11/26/19 Roddy Cunningham MD omeprazole [address] capsule 40 mg, Oral, DAILY 11/26/19 Roddy Cunningham MD pseudoephedrine 30 MG Tab 60 mg, Oral, EVERY 6 HOURS NEEDED Taking 10/01/06 Historical Provider STELARA 45 MG/0.5ML Solution Prefilled Syringe injection No dose, route, or frequency recorded. Taking 10/09/18 Historical Provider tizanidine 2 MG tablet 4 mg, Oral, 2 TIMES DAILY 11/26/19 Roddy Cunningham MD venlafaxine 150 MG Cap SR 24HR capsule XR 150 mg, Oral, DAILY 11/26/19 Roddy Cunningham MD No Known Allergies Social History Socioeconomic History Marital status: Single Spouse name: Not on file Number of children: Not on file Years of education: Not on file Highest education level: Not on file Occupational History Not on file Social Needs Financial resource strain: Not on file Food insecurity Worry: Not on file Inability: Not on file Transportation needs Medical: Not on file Non-medical: Not on file Tobacco Use Smoking status: Never Smoker Smokeless tobacco: Never Used Substance and Sexual Activity Alcohol use: No Drug use: Not on file Sexual activity: Yes control/protection: Pill Lifestyle Physical activity Days per week: Not on file Minutes per session: Not on file Stress: Not on file Relationships Social connections Talks on phone: Not on file Gets together: Not on file Attends uatsdin service: Not on file Active member of club or organization: Not on file Attends meetings of clubs or organizations: Not on file Relationship status: Not on file Intimate partner violence Fear of current or ex partner: Not on file Emotionally abused: Not on file Physically abused: Not on file Forced sexual activity: Not on file Other Topics Concern Not on file Social History Narrative Not on file Family History Problem Relation Age of Onset Depression Mother Asthma Mother Other - Specify Mother fibromyalgia Diabetes Father Hypertension Father Depression Brother Asthma Brother Heart Disease - Other Other Hypertension Other Cancer- Other Other Review of Systems Constitutional: Negative for appetite change, chills, diaphoresis, fatigue, fever and unexpected weight change. HENT: Negative for congestion, ear pain, hearing loss, nosebleeds, rhinorrhea, sinus pressure, sinus pain, sneezing, sore throat, tinnitus, trouble swallowing and voice change. Eyes: Negative for photophobia, pain and visual disturbance. Respiratory: Negative for apnea, cough, choking, chest tightness, shortness of breath, wheezing andstridor. Cardiovascular: Negative for chest pain, palpitations and leg swelling. Gastrointestinal: Negative for abdominal distention, abdominal pain, anal bleeding, blood in stool,constipation, diarrhea, nausea, rectal pain and vomiting. Endocrine: Negative for cold intolerance, heat intolerance, polydipsia, polyphagia and polyuria. Genitourinary: Negative for decreased urine volume, difficulty urinating, dysuria, flank pain, frequency, hematuria and urgency. Musculoskeletal: Negative for arthralgias, back pain, gait problem, joint swelling, myalgias, neck pain and neck stiffness. Skin: Negative for color change, pallor, rash and wound. Allergic/Immunologic: Negative for food allergies and immunocompromised state. Neurological: Negative for dizziness, tremors, seizures, syncope, facial asymmetry, speech difficulty, weakness, light-headedness, numbness and headaches. Hematological: Negative for adenopathy. Does not bruise/bleed easily. Psychiatric/Behavioral: Negative for agitation, behavioral problems, confusion, decreased concentration, dysphoric mood, hallucinations, self-injury, sleep disturbance and suicidal ideas. The patientis not nervous/anxious and is not hyperactive. Vitals: Blood pressure 140/90, pulse 116, resp. rate 20, height 1.448 m (4' 9 ), weight 62.1 kg (137 lb), not currently . Physical Exam Constitutional: General: She is not in acute distress. Appearance: Normal appearance. She is well-developed. She is not ill-appearing, toxic-appearing or diaphoretic. HENT: Head: Normocephalic and atraumatic. Right Ear: Hearing and external ear normal. Left Ear: Hearing and external ear normal. Nose: Nose normal. Mouth/Throat: Pharynx: Uvula midline. Eyes: General: Lids are normal. Conjunctiva/sclera: Conjunctivae normal. Pupils: Pupils are equal, round, and reactive to light. Neck: Musculoskeletal: Full passive range of motion without pain, normal range of motion and neck supple.Normal range of motion. No neck rigidity, spinous process tenderness or muscular tenderness. Vascular: No carotid bruit. Trachea: Trachea and phonation normal. Cardiovascular: Rate and Rhythm: Normal rate and regular rhythm. Heart sounds: Normal heart sounds, S1 normal and S2 normal. Pulmonary: Effort: Pulmonary effort is normal. No tachypnea, bradypnea, accessory muscle usage or respiratory distress. Breath sounds: Normal breath sounds. Abdominal: General: Bowel sounds are normal. Palpations: Abdomen is soft. Tenderness: There is no abdominal tenderness. Lymphadenopathy: Cervical: No cervical adenopathy. Skin: General: Skin is warm and dry. Coloration: Skin is not pale. Findings: No rash. Nails: There is no clubbing. Neurological: Mental Status: She is alert and oriented to person, place, and time. Cranial Nerves: Cranial nerves are intact. Motor: Motor function is intact. No abnormal muscle tone. Coordination: Coordination is intact. Gait: Gait normal. Psychiatric: Attention and Perception: Attention normal. Mood and Affect: Mood normal. Speech: Speech normal. Behavior: Behavior normal. Thought Content: Thought content normal. Cognition and Memory: Cognition is impaired. Judgment: Judgment normal. Neurologic Exam Mental Status Oriented to person, place, and time. Speech: speech is normal Cranial Nerves CN III, IV, Pupils are equal, round, and reactive to light. Assessment and Plan 1. Epilepsy NOS A. The patient is still thinking about becoming . I explained that Lamictal levels can dropduring . I explained that we would have to check levels and possibly go up temporarily on the Lamictal dose. B. Patient was granted refills on Lamictal and Folic Acid. C. Patient will follow up in 1 year once again. Please note this visit consumed 20-25 minutes, of which half or more was dedicated to [id number] counseling of the problems/issues and coordination of all care. documented in this encounter* Gemini Wilhelm MD - 05/15/2020 10:15 AM EDT OFFICE CONSULTATION NOTE [facility] [address]) [facility] [address] [facility] [id number] Physicians: Roddy Cunningham MD (Family); Subjective: I had the pleasure of seeing Ms. Mayuri Smith at the [facility] [employer] office on 05/15/2020 for follow-up of her congenital heart disease. Ms. Smith is a 29 y.o. female who was diagnosed with a hole in her heart at which closed spontaneously; however, she then developed pulmonic stenosis and underwent balloon valvuloplasty by Dr. Abilio Booker in 1989. I initially met Mayuri in September 2016 shortly after she had an episode of unresponsiveness in August 2016. It was unclear if her episode was due to seizure activity or orthostatic hypotension. HerLamictal was increased and she was encouraged to increase her fluid intake. An event monitor was also done at that time which showed no significant arrhythmias. I last saw Ms. Smith in March 2017 and she presents today to reestablish cardiovascular care. Since her last visit, Mayuri has remained stable from a cardiovascular standpoint. She has had no recurrent episodes of unconsciousness. She has stable atypical chest pain which is unrelated to activity. The pain typically lasts approximately 5 minutes before resolving spontaneously. She actually describes fluttering associated with the chest pain. She describes stable functional capacity. She is not aware of any palpitations currently. She denies orthopnea, PND, lower extremity edema, dizziness, or lightheadedness. She has had no new medical issues, overnight hospitalizations or emergency room visits since I saw her last. She remains interested in having children, but has not yet been succes sful in conceiving. 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 Heart murmur Heart murmur Psoriasis Pulmonic stenosis, congenital Scoliosis 2000 Seizures (HCC) first in 2006 Syncope 09/19/2016 Past Surgical History Procedure Laterality Date Acl repair 2011 Cardiac catheterization Foot surgery Left 08/2003 Spine surgery 04/16/2011 spinal fusion Acl repair 05/03/2012 Family History Problem Relation Age of Onset Asthma Mother Hypertension Father Asthma Brother Social History Tobacco Use Smoking status: Never Smoker Smokeless tobacco: Never Used Substance Use Topics Alcohol use: No Drug use: No Outpatient Medications as of 05/15/2020 Medication Sig acetaminophen (TYLENOL) 325 MG tablet Take 650 mg by mouth every 6 (six) hours as needed for pain. albuterol sulfate 90 mcg/actuation AePB Inhale 180 mcg every 4 (four) hours. amitriptyline (ELAVIL) 150 MG tablet Take 150 mg by mouth nightly. anthralin micronized (ZITHRANOL) 1 % Sham Apply topically twice weekly. azelaic acid (FINACEA) 15 % Foam Apply 1 application topically as needed. cholecalciferol, vitamin D3, (VITAMIN D3) 1,000 unit capsule Take 1,000 Units by mouth daily. clobetasol (OLUX) 0.05 % topical foam Apply topically 2 (two) times a day. cyclobenzaprine (FLEXERIL) 10 MG tablet escitalopram oxalate (LEXAPRO) 20 MG tablet Take 20 mg by mouth daily. esomeprazole (NEXIUM) 40 MG capsule Take 40 mg by mouth every morning before breakfast. fluticasone (FLONASE) 50 mcg/actuation nasal spray Instill 2 sprays into each nostril daily. ibuprofen (ADVIL,MOTRIN) 200 MG tablet Take 200 mg by mouth every 6 (six) hours as needed for pain. lamoTRIgine (LAMICTAL) 100 MG tablet Take 300 mg by mouth 2 (two) times a day . melatonin 3 mg Tab Take 3 mg by mouth nightly. norgestimate-ethinyl estradiol (ORTHO TRI-CYCLEN LO) 0.18/0.215/0.25 mg-25 mcg per tablet Take 1 tablet by mouth daily. sulfaSALAzine (AZULFIDINE) 500 mg tablet Take 500 mg by mouth daily. tiZANidine (ZANAFLEX) 6 MG capsule 1.5 tabs a night . [DISCONTINUED] zolpidem (AMBIEN) 10 mg tablet Take 10 mg by mouth nightly as needed for sleep. No Known Allergies ROS Mayuri denies significant weight changes. She does admit to dry mouth which she attributes to her medications. She denies any recent nausea vomiting diarrhea or dysuria. The remainder of a 10 point review of systems is reviewed and either negative or noncontributory. Objective: Vitals: BP 131/78 Pulse (!) 121 Ht 4' 9 Wt 62.6 kg (138 lb) SpO2 94% BMI 29.86 kg/m Physical Exam General: Awake alert pleasant female with short stature and mildly dysmorphic features. No acute distress noted. HEENT: Normocephalic. Atraumatic. Pupils equal round reactive to light. Extraocular movements intact. No icterus noted. Neck veins flat normal carotid upstrokes. Lungs: Clear to auscultation bilaterally. Cardiovascular: There is a quiet precordium. Normal S1 and physiologically split S2. Soft 1 out of 6 early diastolic murmur heard best at the mid left sternal border. No systolic murmurs, gallops, orrubs noted. Abdomen: Soft, no hepatomegaly. Extremities: Marked scoliosis noted. No clubbing cyanosis or edema noted. Echo (08/2016), personally reviewed: 1. Normal left ventricular size and function. 2. Normal right ventricular size and function. 3. Mildly thickened pulmonary valve with mild regurgitation and no stenosis (Vmax 1.3 m/s). 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 She currently describes atypical chest pain which does not appear to be cardiac in nature. She is currently [place] Heart Association class II. She is tachycardic on examination today, but is not aware of her increased heart rate. She clinically appears euvolemic. Her echocardiogram from August 2016 is reassuring showing preserved biventricular function with minimal residual pulmonary valve disease. Given her tachycardia on examination today, will check a CBC, thyroid function studies, and comprehensive metabolic panel. We will also place a 24-hour Holter monitor to evaluate her heart rate variability. Given her underlying congenital heart disease, will check an echocardiogram. Mayuri should continue to liberalize her fluid intake with a goal of 2-3 L of non-caffeinated beverages daily. I did briefly review with Mayuri that based on today's physical examination, she would likely be at an acceptable risk for , but final recommendations will be made pending the results of her upcoming cardiovascular testing. Mayuri is currently self limited her in her activities and she should engage in daily aerobic activity as tolerated. Based on the most recent ACC/AHA guidelines, Mayuri does not require SBE prophylaxisprior to dental GI or procedures. I will follow up with Mayuri pending the results of her upcoming cardiovascular testing. Gemini Wilhelm MD, [facility] 05/15/2020 documented in this encounter* Gemini Wilhelm MD - 06/13/2020 8:00 AM EDT Results acceptable, heart function remains normal and pulmonary stenosis remains mild. She remains at an acceptable risk for . I would like to see her back sooner if she becomes . Please notify patient. documented in this encounter* Roddy Cunningham MD - 01/05/2019 2:50 PM EDT ANXIETY/DEPRESSION- Patient her for anxiety/depression. Patient current medications listed on record. Associated sx include uncontrolled wants to discuss options worse in last 2 months .Substance abuse - NONE. Depression Score today- 13 Anxiety Score today- 18 No acute stressors. Previous medication worked previously. Positive for S, I, E, C, A. No G, P, SI. General: No fever, chills, weight loss. HEENT: No sinus pain, ear pain, sore throat. Neck: No LAD. Lungs: No cough, sputum, pleuritic pain, hemoptysis, SOB. CV: No chest pain, palpitation, orthopnea, PND, edema. GI: No abd pain, nausea, vomiting, diarrhea, constipation, melena, hematochezia. : No dysuria, frequency, hematuria. Skin: No rash or lesion. Neuro: No mental status changes, headache, focal neurologic complaints. Objective: not currently . No results found for this or any previous visit. HEENT: NC/AT, PERRLA, EOMI, fundi benign, external ears normal, OP normal. Neck: No LAD/thyromegaly. No JVD/bruit. Lungs: Clear to auscultation bilaterally. No wheezes, rales, ronchi. Heart: RRR. No S3/S4. Abdomen: Soft, NT/ND, normal bowel sounds, no HSM, no bruits. Extremities: No clubbing, cyanosis, edema. Normal pulses. Neurologic: CN II-XII intact. Strength/DTR's/sensation symmetric. Cerebellar function normal. Skin: No rash or suspicious lesions. Musculoskeletal: No edema, redness, warmth, deformities. Psychiatric: Alert and oriented. Affect and mood flat. Assessment and Plan: 1. Anxious depression ? Serotonin fatigue. Call if not improving. Take in am with food. - duloxetine [address] Particles capsule DR; Take 1 capsule by mouth daily. Dispense: 30 capsule; Refill: 5 Roddy Cunningham MD 01/06/2019 * Felecia Gunn LPN - 01/05/2019 2:50 PM EDT ANXIETY/DEPRESSION- Patient her for anxiety/depression. Patient current medications listed on record. Associated sx include uncontrolled wants to discuss options worse in last 2 months .Substance abuse - NONE. Depression Score today- 13 Anxiety Score today- 18 documented in this encounter* Roddy Cunningham MD - 11/28/2020 9:00 AM EST INSOMNIA- (trouble sleeping) Onset- chronic Frequency- nightly Describe sleep problem (trouble falling asleep, early awakening, etc) - all Treatment tried and response - amitriptyline and tizanidine Additional Comments- PT needs refills on meds. ANXIETY/DEPRESSION- Patient her for anxiety/depression. Pt is currently being treated with lexapro. Good control with medication .Substance abuse - NONE. GERD- Mayuri presents to the office today for follow-up of GERD. Pt denies dysphagia. Pt has tried nexium with good effectiveness. Control - Other comments- Pt needs control pill.Denies increase pain or cramping, long periods. ALLERGY- Mayuri Smith presents for evaluation/follow up for allergies. Eyes red/itchy/tearing: yes Nasal congestion: yes Runny nose: yes Ear pain: no Sinus pain: no she denies fever, chills, sore throat, cough, sputum, SOB, pleuritic pain, nausea, vomiting, rash. Previous treatment tried: listed meds ASTHMA- Mayuri Smith is a 30 y.o. female who comes in for a/an f/u asthma eval Associated sx include Nasal Congestion: no Fever: no Cough: no Wheezing: no Shortness of breath: no Other: no Current medications effectiveness- rx meds Also Sz d/o. No breakthrough. Also IFG. Watching diet. Yeast infection since on ATB from derm. General: No fever, chills, weight loss. HEENT: No sinus pain, ear pain, sore throat. Neck: No LAD. Lungs: No cough, sputum, pleuritic pain, hemoptysis, SOB. CV: No chest pain, palpitation, orthopnea, PND, edema. GI: No abd pain, nausea, vomiting, diarrhea, constipation, melena, hematochezia. : No dysuria, frequency, hematuria. Skin: No rash or lesion. Neuro: No mental status changes, headache, focal neurologic complaints. Objective: Blood pressure 132/84, pulse 78, resp. rate 16, weight 61.8 kg (136 lb 3.2 oz), not currently . Results for orders placed or performed in visit on 09/27/20 M TUBERCULOSIS BY QUANTIFERON, BLD Result Value Ref Range QUANTIFERON INCUBATION Incubation performed. QUANTIFERON TB GOLD PLUS Negative RFLX QUANTIFERON TB GOLD PLUS Result Value Ref Range QUANTIFERON CRITERIA Comment QUANTIFERON TB1 Ag VALUE 0.11 QUANTIFERON TB2 Ag VALUE 0.13 QUANTIFERON NIL VALUE 0.08 QUANTIFERON MITOGEN VALUE >10.00 HEENT: NC/AT, PERRLA, EOMI, fundi benign, external ears normal, OP normal. Neck: No LAD/thyromegaly. No JVD/bruit. Lungs: Clear to auscultation bilaterally. No wheezes, rales, ronchi. Heart: RRR. No S3/S4. Abdomen: Soft, NT/ND, normal bowel sounds, no HSM, no bruits. Extremities: No clubbing, cyanosis, edema. Normal pulses. Neurologic: CN II-XII intact. Strength/DTR's/sensation symmetric. Cerebellar function normal. Skin: No rash or suspicious lesions. Musculoskeletal: No edema, redness, warmth, deformities. Psychiatric: Alert and oriented. Affect and mood normal. Assessment and Plan: 1. Intrinsic asthma - montelukast 10 MG tablet; Take 1 tablet by mouth daily. Dispense: 30 tablet; Refill: 5 - Symbicort 160-4.5 MCG/ACT Aerosol inhaler; Inhale 2 puffs 2 times daily. Dispense: 1 Inhaler; Refill: 5 2. Allergic rhinitis, unspecified seasonality, unspecified trigger - montelukast 10 MG tablet; Take 1 tablet by mouth daily. Dispense: 30 tablet; Refill: 5 3. Anxious depression - venlafaxine 150 MG Cap SR 24HR capsule XR; Take 1 capsule by mouth daily. Dispense: 30 capsule; Refill: 5 4. Congenital scoliosis - cyclobenzaprine 10 MG tablet; Take 1 tablet by mouth 2 times daily. Dispense: 60 tablet; Refill: 5 5. Dysfunctional uterine bleeding - norgestimate-ethinyl estradiol 0.25-35 MG-MCG tablet; Take 1 tablet by mouth daily. Dispense: 1 Package; Refill: 11 6. Gastroesophageal reflux disease without esophagitis - omeprazole [address] capsule; Take 1 capsule by mouth daily. Dispense: 30 capsule; Refill: 5 7. Primary insomnia - tizanidine 2 MG tablet; Take 2 tablets by mouth 2 times daily. Dispense: 120 tablet; Refill: 5 - amitriptyline 150 MG tablet; Take 1 tablet by mouth at bedtime. Dispense: 30 tablet; Refill: 5 8. Impaired fasting glucose 9. Vaginal candidiasis - fluconazole (Diflucan) 150 MG tablet; Take 1 tablet by mouth once a week for 14 days. Dispense: 2tablet; Refill: 0 Lab order in the system. Roddy Cunningham MD 11/28/2020 * Felecia Gunn LPN - 11/28/2020 9:00 AM EST INSOMNIA- (trouble sleeping) Onset- chronic Frequency- nightly Describe sleep problem (trouble falling asleep, early awakening, etc) - all Treatment tried and response - amitriptyline and tizanidine Additional Comments- PT needs refills on meds. ANXIETY/DEPRESSION- Patient her for anxiety/depression. Pt is currently being treated with lexapro. Good control with medication .Substance abuse - NONE. GERD- Mayuri presents to the office today for follow-up of GERD. Pt denies dysphagia. Pt has tried nexium with good effectiveness. Control - Other comments- Pt needs control pill.Denies increase pain or cramping, long periods. ALLERGY- Mayuri Smith presents for evaluation/follow up for allergies. Eyes red/itchy/tearing: yes Nasal congestion: yes Runny nose: yes Ear pain: no Sinus pain: no she denies fever, chills, sore throat, cough, sputum, SOB, pleuritic pain, nausea, vomiting, rash. Previous treatment tried: listed meds ASTHMA- Mayuri Smith is a 30 y.o. female who comes in for a/an f/u asthma eval Associated sx include Nasal Congestion: no Fever: no Cough: no Wheezing: no Shortness of breath: no Other: no Current medications effectiveness- rx meds Also Sz d/o. No breakthrough. documented in this encounter* Modesta Walls MA - 05/22/2020 8:29 AM EDT Nurse only [address] Wilhelm --pt was instructed and verbalized understanding and will return monitor Fri. 05/24 documented in this encounter* Roddy Cunningham MD - 05/30/2020 2:40 PM EDT INSOMNIA- (trouble sleeping) Onset- chronic Frequency- nightly Describe sleep problem (trouble falling asleep, early awakening, etc) - all Treatment tried and response - amitriptyline and tizanidine Additional Comments- PT needs refills on meds. ANXIETY/DEPRESSION- Patient her for anxiety/depression. Pt is currently being treated with lexapro. Good control with medication .Substance abuse - NONE. GERD- Mayuri presents to the office today for follow-up of GERD. Pt denies dysphagia. Pt has tried nexium with good effectiveness. Control - Other comments- Pt needs control pill.Denies increase pain or cramping, long periods. Also chronic LBP and Sz. ALLERGY- Mayuri Smith presents for evaluation/follow up for allergies. Eyes red/itchy/tearing: yes Nasal congestion: yes Runny nose: yes Ear pain: no Sinus pain: no she denies fever, chills, sore throat, cough, sputum, SOB, pleuritic pain, nausea, vomiting, rash. Previous treatment tried: listed meds Subjective: Mayuri Smith presents in follow up for asthma. Control is at baseline. No increase in rescue use. No increase in cough, sputum, SOB. Compliance with medication is good. No medication side effects. she denies fever, chills, hemoptysis, pleuritic pain. No oral pain or lesions. she denies fever, chills, headache, sore throat, chest pain, palpitations, nausea, vomiting, diarrhea, dysuria, frequency, hematuria. Also Sz d/o. No breakthrough. General: No fever, chills, weight loss. HEENT: No sinus pain, ear pain, sore throat. Neck: No LAD. Lungs: No cough, sputum, pleuritic pain, hemoptysis, SOB. CV: No chest pain, palpitation, orthopnea, PND, edema. GI: No abd pain, nausea, vomiting, diarrhea, constipation, melena, hematochezia. : No dysuria, frequency, hematuria. Skin: No rash or lesion. Neuro: No mental status changes, headache, focal neurologic complaints. Objective: Blood pressure (!) 141/96, pulse 114, resp. rate 16, weight 63 kg (138 lb 12.8 oz), SpO2 98 %, not currently . No results found for this or any previous visit. HEENT: NC/AT, PERRLA, EOMI, fundi benign, external ears normal, OP normal. Neck: No LAD/thyromegaly. No JVD/bruit. Lungs: Clear to auscultation bilaterally. No wheezes, rales, ronchi. Heart: RRR. No S3/S4. Abdomen: Soft, NT/ND, normal bowel sounds, no HSM, no bruits. Extremities: No clubbing, cyanosis, edema. Normal pulses. Neurologic: CN II-XII intact. Strength/DTR's/sensation symmetric. Cerebellar function normal. Skin: No rash or suspicious lesions. Musculoskeletal: No edema, redness, warmth, deformities. Psychiatric: Alert and oriented. Affect and mood normal. Assessment and Plan: 1. Anxious depression - venlafaxine 150 MG Cap SR 24HR capsule XR; Take 1 capsule by mouth daily. Dispense: 30 capsule; Refill: 5 2. Congenital scoliosis - cyclobenzaprine 10 MG tablet; Take 1 tablet by mouth 2 times daily. Dispense: 60 tablet; Refill: 5 3. Gastroesophageal reflux disease without esophagitis - omeprazole [address] capsule; Take 1 capsule by mouth daily. Dispense: 30 capsule; Refill: 5 4. Primary insomnia - tizanidine 2 MG tablet; Take 2 tablets by mouth 2 times daily. Dispense: 120 tablet; Refill: 5 - amitriptyline 150 MG tablet; Take 1 tablet by mouth at bedtime. Dispense: 30 tablet; Refill: 5 5. Convulsive generalized seizure disorder - BASIC METABOLIC PANEL; Future - HEPATIC FUNCTION PANEL; Future - LIPID PANEL W CALCULATED LDL; Future - TSH W/FT4 REFLEX; Future - LAMOTRIGINE LEVEL; Future 6. Impaired fasting glucose - HEMOGLOBIN A1C; Future 7. Intrinsic asthma - Symbicort 160-4.5 MCG/ACT Aerosol inhaler; Inhale 2 puffs 2 times daily. Dispense: 1 Inhaler; Refill: 5 - montelukast 10 MG tablet; Take 1 tablet by mouth daily. Dispense: 30 tablet; Refill: 5 8. Allergic rhinitis, unspecified seasonality, unspecified trigger - montelukast 10 MG tablet; Take 1 tablet by mouth daily. Dispense: 30 tablet; Refill: 5 Roddy Cunningham MD 05/30/2020 * Felecia Gunn LPN - 05/30/2020 2:40 PM EDT INSOMNIA- (trouble sleeping) Onset- chronic Frequency- nightly Describe sleep problem (trouble falling asleep, early awakening, etc) - all Treatment tried and response - amitriptyline and tizanidine Additional Comments- PT needs refills on meds. ANXIETY/DEPRESSION- Patient her for anxiety/depression. Pt is currently being treated with lexapro. Good control with medication .Substance abuse - NONE. GERD- Mayuri presents to the office today for follow-up of GERD. Pt denies dysphagia. Pt has tried nexium with good effectiveness. Control - Other comments- Pt needs control pill.Denies increase pain or cramping, long periods. Also chronic LBP and Sz. ALLERGY- Mayuri Sarah presents for evaluation/follow up for allergies. Eyes red/itchy/tearing: yes Nasal congestion: yes Runny nose: yes Ear pain: no Sinus pain: no she denies fever, chills, sore throat, cough, sputum, SOB, pleuritic pain, nausea, vomiting, rash. 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 Acute maxillary sinusitis, recurrence not specified Diagnosis Anxious depression- Primary Diagnosis Intractable epilepsy without status epilepticus, unspecified epilepsy type Diagnosis Convulsive generalized seizure disorder- Primary 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, unspecified epilepsy type Diagnosis Convulsive generalized seizure disorder- Primary Generalized convulsive epilepsy without mention of intractable epilepsy Dysfunctional uterine bleeding Other disorder of menstruation and other abnormal bleeding from female genital tract Chronic low back pain, unspecified back pain laterality, with sciatica presence unspecified 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 Primary insomnia Persistent disorder of initiating or maintaining sleep Gastroesophageal reflux disease without esophagitis Esophageal reflux Anxious depression Diagnosis Intractable epilepsy without status epilepticus, unspecified epilepsy type Diagnosis Gastroesophageal reflux disease without esophagitis Esophageal reflux Primary insomnia Persistent disorder of initiating or maintaining sleep 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 Dysfunctional uterine bleeding Other disorder of menstruation and other abnormal bleeding from female genital tract 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 Acne vulgaris Other acne Allergic rhinitis, unspecified seasonality, unspecified trigger Diagnosis Intractable epilepsy without status epilepticus, 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 Nonrheumatic pulmonary valve stenosis Palpitations Diagnosis Nonrheumatic pulmonary valve stenosis Diagnosis Anxious depression- Primary Diagnosis Impaired fasting glucose- Primary Intrinsic asthma Intrinsic asthma, unspecified Allergic rhinitis, unspecified seasonality, unspecified trigger 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 Dysfunctional uterine bleeding Other disorder of menstruation and other abnormal bleeding from female genital tract Gastroesophageal reflux disease without esophagitis Esophageal reflux Primary insomnia Persistent disorder of initiating or maintaining sleep Vaginal candidiasis Candidiasis of vulva and vagina Diagnosis Pulmonary artery aneurysm (HCC) Aneurysm of pulmonary artery Nonrheumatic pulmonary valve stenosis Diagnosis Convulsive generalized seizure disorder- Primary Generalized convulsive epilepsy without 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 documented in this encounter* Patient Instructions* Dorothy Tsai RN - 05/15/2020 9:55 AM EDT Provider: Dr. Gemini Wilhelm Nurse: TOYIN Napier, RN documented in this encounter Reason for Referral Status Reason Specialty Diagnoses / Procedures Referred By Contact Referred To Contact Authorized Cardiology Diagnoses Pulmonary artery aneurysm (HCC) Nonrheumatic pulmonary valve stenosis Procedures Holter monitor - 24 hour Gemini Wilhelm MD [address] [place] [address] Status Reason Specialty Diagnoses / Procedures Referred By Contact Referred To Contact Pending Review Cardiology Diagnoses Nonrheumatic pulmonary valve stenosis Procedures Echocardiogram complete Gemini Wilhelm MD [address] [place] [address] Status Reason Specialty Diagnoses / Procedures Referre d By Contact Referred To Contact Closed Cardiology Diagnoses Nonrheumatic pulmonary valve stenosis Procedures Echocardiogram complete Gemini Wilhelm MD [address] [place] [address] Status Reason Specialty Diagnoses / Procedures Referre d By Contact Referred To Contact Closed Cardiology Diagnoses Pulmonary artery aneurysm (HCC) Nonrheumatic pulmonary valve stenosis Procedures Holter monitor - 24 hour Gemini Wilhelm MD [address] [place] [address] Specialty Diagnoses / Procedures Referred By Contac t Referred To Contact Diagnoses Intrinsic asthma Roddy Cunningham MD [address] [place] [address] Referral ID Status Reason Start Date Expiration Date Visits Re quested Visits Authorized [id number] Closed 1 1 Additional Source Comments INFORMATION SOURCE (unrecogn ized section and content) DATE CREATED AUTHOR AUTHOR'S ORGANIZ ATION 05/23/2020 [facility] DATE CREATED AUTHOR AUTHOR'S ORGANIZ ATION 05/26/2020 [facility] DATE CREATED AUTHOR AUTHOR'S ORGANIZ ATION 06/14/2020 [facility] DATE CREATED AUTHOR AUTHOR'S ORGANIZ ATION 07/19/2023 [facility] Reason for Visit (unrecogniz ed section and content) Reason Comments Advice Only Reason Comments Medication Management Reason Comments Other Reason Comments Results Reason Comments Medication Refill Reason Comments Follow-up Seizure Reason Comments Establish Care re-est care from 201 7, patient states that she does get CP on and off. Status Reason Specialty Diagnoses / Procedures Referre d By Contact Referred To Contact Closed Cardiology Diagnoses Nonrheumatic pulmonary valve stenosis Procedures Echocardiogram complete Gemini Wilhelm MD [address] [place] [address] Reason Comments Anxiety Depression Status Reason Specialty Diagnoses / Procedures Referre d By Contact Referred To Contact Closed Cardiology Diagnoses Pulmonary artery aneurysm (HCC) Nonrheumatic pulmonary valve stenosis Procedures Holter monitor - 24 hour Gemini Wilhelm MD [address] [place] [address] Reason Comments Nurse Consult Nurse only 24 hour h olter Reason Comments Medication Refill Reason Comments Follow-up Epilepsy Care Teams (unrecognized sec tion and content) Periodicals Library Assistant Relationship Specialty Start Date End Date Roddy Cunningham MD PCP - General Family Medicine 01/07/17 [employer] Library Assistant Relationship Specialty Start Date End Date Roddy Cunningham MD PCP - General Family Medicine 01/07/17 Periodicals Library Assistant Relationship Specialty Start Date End Date Roddy Cunningham MD PCP - General Family Medicine 01/07/17 Periodicals Library Assistant Relationship Specialty Start Date End Date Roddy Cunningham MD PCP - General Family Medicine 01/07/17 FOR RECORDS PERTAINING TO PATIENTS WHO ARE OR HAVE BEEN ENROLLED IN A CHEMICAL DEPENDENCY/SUBSTANCEABUSE PROGRAM, SOME INFORMATION MAY BE OMITTED. This clinical summary was aggregated from multiple sources. Caution should be exercised in using it in the provision of clinical care. This summary normalizes information from multiple sources, and as a consequence, information in this document may materially change the coding, format and clinical context of patient data. In addition, data may be omitted in some cases. CLINICAL DECISIONS SHOULD BE BASED ON THE PRIMARY CLINICAL RECORDS. [facility] [employer] [facility]. provides no warranty or guarantee of the accuracy or completeness of information in this document.
[2023-11-12 19:07] LABS: QNTFERON TB Mitogen Value > 10.00 IU/mL (.); QNTFERON TB Nil Value 0.37 IU/mL (.); QNTFERON TB2+ Ag Value 0.46 IU/mL (.); QNTIFERON TB Positive Criteria Negative (Negative)
== END | disposition home or self-care (01) ==
PROVIDERS: PCP Family Medicine; Referring Provider Physician Assistant Medical; Visit Provider Physician Assistant Medical
DX: L40.0 Psoriasis vulgaris (principal); Z79.899 Other long term (current) drug therapy
CPT/HCPCS: 36415; 86480

== ENCOUNTER → 2025-03-22 | Outpatient (CLI) | payer OTHER, SELFPAY ==
[2025-03-24 05:07] LABS: QNTFERON TB Mitogen Value > 10.00 IU/mL (.); QNTFERON TB Nil Value 0.15 IU/mL (.); QNTFERON TB1+ Ag Value 0.18 IU/mL (.); QNTFERON TB2+ Ag Value 0.15 IU/mL (.); QNTIFERON TB Positive Criteria Negative (Negative)
== END | disposition home or self-care (01) ==
LOC: MTLAB 16:24
PROVIDERS: PCP Family Medicine; Referring Provider Physician Assistant Medical; Visit Provider Physician Assistant Medical
DX: L40.0 Psoriasis vulgaris (principal)
CPT/HCPCS: 36415; 86480